=== PATIENT | female | born 1955 | race Caucasian/White ===

== ENCOUNTER → 2016-03-27 | Outpatient (CLI) | payer OTHER ==
--- NOTE | 2016-03-27 09:41 | MM ---
Reason for exam: follow-up at short interval from prior study. Last mammogram was performed 7 months ago. History: Patient is postmenopausal and history of other cancer. Benign core biopsy of the left breast, May 28, 1997. Benign stereotactic core biopsy of the left breast, May 28, 1997. Taking estrogen for 3 years 7 months. Physical Findings: Nurse did not find any significant physical abnormalities on exam. MG 3D Diag Mammo W/Cad CATALINA Bilateral CC and MLO view(s) were taken. Prior study comparison: August 17, 2015, bilateral MG 3d diag mammo w/cad CATALINA. February 14, 2015, bilateral MG 3d work up w/cad CATALINA. There are scattered fibroglandular densities. Finding: There are typically benign calcifications in both breasts. No significant changes in finding since August 17, 2015 and February 14, 2015. These results were verbally communicated with the patient and result sheet given to the patient on 03/27/16. ASSESSMENT: Benign, BI-RAD 2 RECOMMENDATION: Routine screening mammogram of both breasts in 1 year.
== END | disposition home or self-care (01) ==
LOC: RADMAMWWP 08:17
PROVIDERS: ATTEND Obstetrics & Gynecology
DX: R92.8 Other abnormal and inconclusive findings on diagnostic imaging of breast (principal)
CPT/HCPCS: G0204; G0279

== ENCOUNTER 2016-05-09 20:14 | Inpatient (IN) | payer OTHER ==
[2016-05-09] MEDS ORDERED: SODIUM CHLORIDE 0.9% 2,000 ML IV STA (21:48)
[2016-05-09] MEDS ORDERED: SODIUM CHLORIDE 0.9% 1,000 ML IV STA (21:48)
[2016-05-09] MEDS ORDERED: ACETAMINOPHEN IV (For NPO) 1,000 MG in SALINE 1 100ML.BAG IVPB STA (21:49)
[2016-05-09] MEDS ORDERED: ONDANSETRON 4 MG/2 ML VIAL IVP STA (22:05)
[2016-05-09 22:08] LABS: Basophils % (A) 0 %; CH 32.5; CHCM 35.4; Eosinophils % (A) 0 %; HDW 2.58; HGB 14.1 gm/dL (11.4-16.0); Luc # (Auto) 0.26; Luc % (Auto) 3; Lymphocytes # (A) 0.6 k/uL (1.0-4.8); Lymphocytes % (A) 6 %; MCH 32.5 pg (25.0-35.0); MCHC 35.3 g/dL (31.0-37.0); MCV 92.2 fL (80.0-100.0); Mean Platelet Volume 7.9; Monocytes # (A) 0.8 k/uL (0-1.0); Monocytes % (A) 8 %; Neutrophils # (A) 8.3 k/uL (1.3-7.7); Neutrophils % (A) 83 %; RBC 4.34 m/uL (3.80-5.40); RDW 11.6 % (11.5-15.5); WBC (Perox) 10.28
[2016-05-09 22:18] LABS: ALT 33 U/L (9-52); AST 29 U/L (14-36); Alkaline Phosphatase 74 U/L (38-126); Amylase 40 U/L (30-110); Anion Gap 13 mmol/L; Blood Urea Nitrogen 14 mg/dL (7-17); Calcium 9.4 mg/dL (8.4-10.2); Carbon Dioxide 25 mmol/L (22-30); Chloride 100 mmol/L (98-107); Glucose 119 mg/dL (74-99); Non-African American GFR(MDRD) >60 (>60 ml/min/1.73 sqM); Potassium 3.6 mmol/L (3.5-5.1); Sodium 138 mmol/L (137-145); Total Bilirubin 1.4 mg/dL (0.2-1.3); Total Protein 7.4 g/dL (6.3-8.2)
--- NOTE | 2016-05-09 22:20 | XR ---
EXAMINATION TYPE: XR chest 2V DATE OF EXAM: 05/09/2016 10:12 PM COMPARISON: NONE HISTORY: Fever TECHNIQUE: Frontal and lateral views of the chest are obtained. FINDINGS: Heart and mediastinum are normal. Lungs are clear. Diaphragm is normal. Bony thorax is int act. There are chest leads. IMPRESSION: Normal chest
--- NOTE | 2016-05-09 22:20 | ED ---
Fever HPI - General Chief Complaint: Fever Stated Complaint: Fever/103.2 Time Seen by Provider: 05/09/16 21:42 Source: patient, RN notes reviewed Mode of arrival: ambulatory Limitations: no limitations - History of Present Illness Initial Comments: This is a 61-year-old female history diverticulosis who states she had the onset over last couple days of not feeling well. She also has had left lower quadrant abdominal pain and some low back pain. This was on the left. She also her urine is a little stronger than normal. No sore throat rhinorrhea cough. No other symptoms she's had decreased oral intake she feels nauseated every time she tries to eat or drink. MD Complaint: fever, other - Related Data Home Medications Medication Instructions Recorded Confirmed Clindamycin Phosphate [Cleocin T] 1 applicate TOPICAL BID PRN 05/09/16 05/09/16 Estradiol [Vagifem] 10 mcg VAGINAL MOTH 05/09/16 05/09/16 [employer] Thyroid 60 mg PO BID 05/09/16 05/09/16 Allergies Allergy/AdvReac Type Severity Reaction Status Date / Time No Known Allergies Allergy Verified 05/09/16 22:08 Review of Systems ROS Statement: Those systems with pertinent positive or pertinent negative responses have been documented in the HPI. ROS Other: All systems not noted in ROS Statement are negative. Past Medical History Additional Past Medical History / Comment(s): diverticulosis History of Any Multi-Drug Resistant Organisms: None Reported Past Surgical History: Hysterectomy Past Psychological History: No Psychological Hx Reported Smoking Status: Never smoker Past Alcohol Use History: Occasional Past Drug Use History: None Reported General Exam - General Exam Comments Initial Comments: Is a well-developed well-nourished awake alert oriented 3 female Limitations: no limitations General appearance: alert, in no apparent distress Head exam: Present: atraumatic, normocephalic, normal inspection Eye exam: Present: normal appearance, PERRL, EOMI. Absent: scleral icterus, conjunctival injection, periorbital swelling ENT exam: Present: mucous membranes dry Neck exam: Present: normal inspection. Absent: tenderness, meningismus, lymphadenopathy Respiratory exam: Present: normal lung sounds bilaterally. Absent: respiratory distress, wheezes, rales, rhonchi, stridor Cardiovascular Exam: Present: normal rhythm, tachycardia GI/Abdominal exam: Present: soft (Left lower quadrant tenderness palpation no definite guarding or rebound), tenderness Rectal exam: Present: deferred Extremities exam: Present: normal inspection, full ROM, normal capillary refill. Absent: tenderness, pedal edema, joint swelling, calf tenderness Back exam: Present: normal inspection Neurological exam: Present: alert, oriented X3, CN II-XII intact Psychiatric exam: Present: normal affect, normal mood Skin exam: Present: warm, dry, intact, normal color. Absent: rash Course Vital Signs 05/09/16 05/09/16 05/09/16 21:15 21:59 22:27 Temperature 102.3 F H 101.7 F H Pulse Rate 135 H 143 H 116 H Respiratory 20 18 16 Rate Blood Pressure 120/71 O2 Sat by Pulse 98 98 95 Oximetry 05/09/16 23:17 Temperature 99.1 F Pulse Rate 105 H Respiratory 16 Rate Blood Pressure 103/59 O2 Sat by Pulse 95 Oximetry - Reevaluation(s) Reevaluation #1: 05/10/16 00:17 Did reevaluate the patient she was feeling somewhat improved. Medical Decision Making - Medical Decision Making Did discuss findings with the patient and her as well as with Dr. Caballero. Patient will be admitted place an IV antibiotics IV fluids Flomax. I did discuss the case with Dr. Claros. Patient will be nothing by mouth after midnight. - Lab Data Result diagrams: 05/09/16 21:45 05/09/16 21:45 Lab Results 05/09/16 05/09/16 05/09/16 Range/Units 21:45 21:45 21:45 WBC 10.0 (3.8-10.6) k/uL RBC 4.34 (3.80-5.40) m/uL Hgb 14.1 (11.4-16.0) gm/dL Hct 40.0 (34.0-46.0) % MCV 92.2 (80.0-100.0) fL MCH 32.5 (25.0-35.0) pg MCHC 35.3 (31.0-37.0) g/dL RDW 11.6 (11.5-15.5) % Plt Count 222 (150-450) k/uL Neutrophils % 83 % Lymphocytes % 6 % Monocytes % 8 % Eosinophils % 0 % Basophils % 0 % Neutrophils # 8.3 H (1.3-7.7) k/uL Lymphocytes # 0.6 L (1.0-4.8) k/uL Monocytes # 0.8 (0-1.0) k/uL Eosinophils # 0.0 (0-0.7) k/uL Basophils # 0.0 (0-0.2) k/uL Sodium 138 (137-145) mmol/L Potassium 3.6 (3.5-5.1) mmol/L Chloride 100 (98-107) mmol/L Carbon Dioxide 25 (22-30) mmol/L Anion Gap 13 mmol/L BUN 14 (7-17) mg/dL Creatinine 0.72 (0.52-1.04) mg/dL Est GFR (MDRD) Af Amer >60 (>60 ml/min/1.73 sqM) Est GFR (MDRD) Non-Af >60 (>60 ml/min/1.73 sqM) Glucose 119 H (74-99) mg/dL Plasma Lactic Acid Venu (0.7-2.0) mmol/L Calcium 9.4 (8.4-10.2) mg/dL Total Bilirubin 1.4 H (0.2-1.3) mg/dL AST 29 (14-36) U/L ALT 33 (9-52) U/L Alkaline Phosphatase 74 (38-126) U/L Total Creatine Kinase 29 L (30-135) U/L CK-MB (CK-2) <0.2 (0.0-2.4) ng/mL CK-MB (CK-2) Rel Index Troponin I <0.012 (0.000-0.034) ng/mL Total Protein 7.4 (6.3-8.2) g/dL Albumin 4.1 (3.5-5.0) g/dL Amylase 40 (30-110) U/L Lipase 51 (23-300) U/L Urine Color Urine Appearance (Clear) Urine pH (5.0-8.0) Ur Specific [place] (1.001-1.035) Urine Protein (Negative) Urine Glucose (UA) (Negative) Urine Blood (Negative) Urine Nitrate (Negative) Urine Bilirubin (Negative) Urine Urobilinogen (<2.0) mg/dL Ur Leukocyte Esterase (Negative) Urine RBC (0-5) /hpf Urine WBC (0-5) /hpf Urine WBC Clumps (None) /hpf Urine Bacteria (None) /hpf 05/09/16 05/09/16 Range/Units 21:45 23:10 WBC (3.8-10.6) k/uL RBC (3.80-5.40) m/uL Hgb (11.4-16.0) gm/dL Hct (34.0-46.0) % MCV (80.0-100.0) fL MCH (25.0-35.0) pg MCHC (31.0-37.0) g/dL RDW (11.5-15.5) % Plt Count (150-450) k/uL Neutrophils % % Lymphocytes % % Monocytes % % Eosinophils % % Basophils % % Neutrophils # (1.3-7.7) k/uL Lymphocytes # (1.0-4.8) k/uL Monocytes # (0-1.0) k/uL Eosinophils # (0-0.7) k/uL Basophils # (0-0.2) k/uL Sodium (137-145) mmol/L Potassium (3.5-5.1) mmol/L Chloride (98-107) mmol/L Carbon Dioxide (22-30) mmol/L Anion Gap mmol/L BUN (7-17) mg/dL Creatinine (0.52-1.04) mg/dL Est GFR (MDRD) Af Amer (>60 ml/min/1.73 sqM) Est GFR (MDRD) Non-Af (>60 ml/min/1.73 sqM) Glucose (74-99) mg/dL Plasma Lactic Acid Venu 0.9 (0.7-2.0) mmol/L Calcium (8.4-10.2) mg/dL Total Bilirubin (0.2-1.3) mg/dL AST (14-36) U/L ALT (9-52) U/L Alkaline Phosphatase (38-126) U/L Total Creatine Kinase (30-135) U/L CK-MB (CK-2) (0.0-2.4) ng/mL CK-MB (CK-2) Rel Index Troponin I (0.000-0.034) ng/mL Total Protein (6.3-8.2) g/dL Albumin (3.5-5.0) g/dL Amylase (30-110) U/L Lipase (23-300) U/L Urine Color Yellow Urine Appearance Cloudy H (Clear) Urine pH 6.0 (5.0-8.0) Ur Specific [place] 1.040 H (1.001-1.035) Urine Protein 1+ H (Negative) Urine Glucose (UA) Negative (Negative) Urine Blood Moderate H (Negative) Urine Nitrate Negative (Negative) Urine Bilirubin Negative (Negative) Urine Urobilinogen <2.0 (<2.0) mg/dL Ur Leukocyte Esterase Large H (Negative) Urine RBC 65 H (0-5) /hpf Urine WBC >182 H (0-5) /hpf Urine WBC Clumps Moderate H (None) /hpf Urine Bacteria Rare H (None) /hpf - EKG Data -: EKG Interpreted by Me EKG shows normal: sinus rhythm Rate: tachycardia (Tachycardia rate was 147 QRS duration 70 daily since QTC of 344/[address]-T wave configuration.) - Radiology Data Radiology results: report reviewed (I did review the imaging and reports x-rays are unremarkable CAT scan that she'll evidence of a left UPJ calcification 8 mm diameter. There is perinephric stranding. Some hydronephrosis noted.), image reviewed Disposition Clinical Impression: Ureterolithiasis, Pyelonephritis, Febrile illness, acute, Sinus tachycardia, Dehydration Disposition: ADMITTED IP TO THIS [facility] Condition: Stable
--- NOTE | 2016-05-09 22:21 | XR ---
EXAMINATION TYPE: XR KUB DATE OF EXAM: 05/09/2016 10:12 PM COMPARISON: NONE HISTORY: Fever and abdominal pain TECHNIQUE: 2 views FINDINGS: bowel gas pattern is normal. There is no sign of intestinal obstruction or pneumoperitoneum. Fecal p attern is normal. Lung bases are clear. There are clips from cholecystectomy. There is no sign of a m ass. IMPRESSION: Nonacute abdomen.
[2016-05-09 22:28] LABS: Creatine Kinase 29 U/L (30-135)
[2016-05-09] MEDS ORDERED: RX INFO: IV CONTRAST WAS GIVEN 1 EACH MISC MISCELLANE PRN (22:28)
[2016-05-09] MEDS ORDERED: KETOROLAC 30 MG/ML 1 ML VIAL IVP STA (22:28)
[2016-05-09 22:42] LABS: Creatine Kinase MB <0.2 ng/mL (0.0-2.4); Troponin I <0.012 ng/mL (0.000-0.034)
--- NOTE | 2016-05-09 23:02 | CT ---
EXAMINATION TYPE: CT abdomen pelvis w con DATE OF EXAM: 05/09/2016 10:56 PM COMPARISON: NONE HISTORY: Left lower quadrant pain and fever. History of diverticulitis. CT DLP: 428.30 mGycm Automated exposure control for dose reduction was used. TECHNIQUE: Helical acquisition of images was performed from the lung bases through the pelvis. CONTRAST: Performed without Oral Contrast and with IV Contrast, patient injected with 100 mL of Omnipaque 300. FINDINGS: Lung bases are clear. There is no pleural effusion. There is minimal subsegmental atelectasis at the lateral left lung base. Heart size is normal. Liver has normal size. There is a 2 cm cyst in the left lobe of the liver. Spleen appears normal. The re is no pancreatic mass. There is cholecystectomy. Bile ducts are not dilated. There is no adrenal m ass. Kidneys have normal size. There is left-sided hydronephrosis. There is an 8 mm calculus in the p roximal left ureter. The right kidney shows no hydronephrosis. There is no retroperitoneal adenopathy . There is no ascites. Bladder distends smoothly. I see no intestinal wall thickening. There are no d ilated loops. Appendix appears normal. I see no bony destructive process. There is disc space narrowing at L4-5 and L5-S1. IMPRESSION: THERE IS A STONE AT THE LEFT URETEROPELVIC JUNCTION WITH OBSTRUCTION OF THE LEFT UPPER COLLECTING SYS TEM. MILD LEFT HYDRONEPHROSIS. MILD LEFT-SIDED PERINEPHRIC EDEMA. SMALL CYST IN THE LEFT LOBE OF THE LIVER. NORMAL APPENDIX. THERE ARE A FEW SIGMOID DIVERTICULA NO WITH NO EVIDENCE OF DIVERTICULITIS.
[2016-05-09 23:32] LABS: Appearance,Urine Cloudy (Clear); Bacteria,Urine Rare /hpf; Bilirubin,Urine Negative (Negative); Glucose,Urine (UA) Negative (Negative); Ketones,Urine 2+ (Negative); Leukocyte Esterase,Urine Large (Negative); Nitrite,Urine Negative (Negative); Particle Count 46057; Protein,Urine 1+ (Negative); RBC,Urine 65 /hpf (0-5); UA Billing (MACRO vs. MICRO) MICRO; Urobilinogen,Urine <2.0 mg/dL (<2.0); WBC,Urine >182 /hpf (0-5)
[2016-05-09] MEDS ORDERED: PIPERACILLIN-TAZOBACTAM 3.375 GM in DEXTROSE/WATER 1 50ML.BAG IVPB STA (23:53)
[2016-05-10] MEDS ORDERED: TAMSULOSIN 0.4 MG CAP.ER.24H PO STA (00:14)
[2016-05-10] MEDS ORDERED: NALOXONE 0.4 MG/ML 1 ML VIAL IV PRN (00:20)
[2016-05-10] MEDS: ACETAMINOPHEN IV (For NPO) 1,000 MG in SALINE 1 100ML.BAG IVPB SCH ×3 (03:56→16:58)
[2016-05-10] MEDS: SODIUM CHLORIDE 0.9% 1,000 ML IV SCH ×3 (04:00→16:58)
--- NOTE | 2016-05-10 06:51 | P.GSCN ---
History of Present Illness Consult date: 05/10/16 History of present illness: The patient is a pleasant 61-year-old female who on Saturday began having left lower quadrant and hip pain. She has a history of diverticulitis and thought this was a problem but it was different. The pain persisted and worsened. He became quite colicky. She developed a fever and chills. She ended up in the emergency room last night and was identified to have an 8 mm proximal ureteral stone with infected urine. She had a temperature 102 and was tachycardic. She is admitted to the hospital as a urinary tract infection with sepsis, pyonephrosis, left ureteral stone. We were consult. The patient has no history of stones. Her mother and said stones. She does have diverticulitis but this is different. Her temperatures been controlled overnight. She has been placed on antibiotics. She had a computed tomography scan identifying the millimeter obstructing proximal ureteral stone her urine indeed is infected. Review of Systems - Constitutional Reports as per HPI - Gastrointestinal Reports as per HPI - Genitourinary Genitourinary: Reports as per HPI Past Medical History Additional Past Medical History / Comment(s): diverticulosis History of Any Multi-Drug Resistant Organisms: None Reported Past Surgical History: Cholecystectomy, Hysterectomy, Orthopedic Surgery Additional Past Surgical History / Comment(s): ankle Past Anesthesia/Blood Transfusion Reactions: Postoperative Nausea & Vomiting ( PONV) Past Psychological History: No Psychological Hx Reported Smoking Status: Former smoker Past Alcohol Use History: Occasional Past Drug Use History: None Reported Medications and Allergies Home Medications Medication Instructions Recorded Confirmed Type Clindamycin Phosphate [Cleocin T] 1 applicate TOPICAL BID PRN 05/09/16 05/09/16 History Estradiol [Vagifem] 10 mcg VAGINAL MOTH 05/09/16 05/09/16 History [employer] Thyroid 60 mg PO BID 05/09/16 05/09/16 History Allergies Allergy/AdvReac Type Severity Reaction Status Date / Time No Known Allergies Allergy Verified 05/09/16 22:08 Surgical - Exam Vital Signs Temp Pulse Resp BP Pulse Ox 102.3 F H 135 H 20 120/71 98 05/09/16 21:15 05/09/16 21:15 05/09/16 21:15 05/09/16 21:15 05/09/16 21:15 - General well developed, well nourished, moderate pain - Eyes PERRL - ENT no hearing loss - Neck trachea midline - Respiratory normal expansion, normal respiratory effort - Cardiovascular Rhythm: regular - Abdomen Abdomen: soft, tender - Integumentary no rash - Neurologic normal coordination, normal sensation - Musculoskeletal normal posture - Psychiatric oriented to time, oriented to person, oriented to place, speech is normal, memory intact Results - Labs 05/09/16 21:45 05/09/16 21:45 Assessment and Plan Plan: Impression: Left ureteral stone with obstruction, urinary tract infection with sepsis, pyonephrosis. Recommendations: This patient needs an urgent placement of a double-J catheter to relieve the obstruction and sepsis. This will be done today. Stone treatment formally will be done at a later date.
[2016-05-10] MEDS: PIPERACILLIN-TAZOBACTAM 3.375 GM in DEXTROSE/WATER 1 50ML.BAG IVPB SCH ×2 (07:46→17:27)
[2016-05-10] MEDS ORDERED: IV FLUID CONTINUATION 1,000 ML IV ONE (11:35)
[2016-05-10] MEDS ORDERED: DEXAMETHASONE SOD PHOSPHATE 10 MG/ML 1 ML VIAL IV ONE (11:56)
[2016-05-10] MEDS ORDERED: ONDANSETRON 4 MG/2 ML VIAL IVP ONE (11:57)
[2016-05-10] MEDS ORDERED: MIDAZOLAM 2 MG/2 ML VIAL ONE (12:21)
[2016-05-10] MEDS ORDERED: fentaNYL (PF) 50 MCG/ML 2 ML AMP ONE (12:21)
[2016-05-10] MEDS ORDERED: SUCCINYLCHOLINE CHLORIDE 100 MG/5 ML SYR IV ONE (12:21)
[2016-05-10] MEDS ORDERED: PROPOFOL 10 MG/ML 20 ML VIAL IV ONE (12:21)
[2016-05-10] MEDS ORDERED: LIDOCAINE 1% INJ 10MG/ML (20 ML MDV) ONE (12:21)
[2016-05-10] MEDS ORDERED: LACTATED RINGERS 1,000 ML IV ONE (12:39)
[2016-05-10] MEDS ORDERED: CLINDAMYCIN PHOSPHATE TOPICAL PRN (12:47)
--- NOTE | 2016-05-10 12:52 | P.OP ---
Date of Procedure: 05/10/16 Preoperative Diagnosis: Left ureteral calculus with obstruction, urinary tract infection with sepsis, pyonephrosis Postoperative Diagnosis: Same Procedure(s) Performed: Cystoscopy with placement of 6 x 24 double-J catheter left Anesthesia: YULISA Surgeon: Vickey Claros Estimated Blood Loss (ml): 0 Pathology: none sent Condition: stable Disposition: PACU Indications for Procedure: The patient is a 61-year-old female came in the hospital last night with an acute left ureteral stone and infected urine and sepsis. We're asked see the patient. I saw the patient this morning and she indeed history of an obstructing stone with urinary tract infection with sepsis. She needs an urgent placement of a double-J catheter to relieve the obstruction and allow the antibiotics to treat the infection. She comes for this procedure Description of Procedure: Patient brought to the operating suite and given a general endotracheal anesthesia. She's placed lithotomy position with a sterile prep and drape. Cystoscopy Foroblique lens and 22-Yi sheath identifies a normal urethra. She has a posterior place floor the bladder consistent with a cystocele. She has acute cystitis noted. The left ureteral orifice is identified and intubated with an 035 wire that passes by the elongated proximal ureteral stone. Over the wires is passed a 6 x 24 double-J catheter. It is tight going by the stone and the double-J coils in the kidney and in the bladder. The bladder is drained the patient's awake and returned recovery in good condition. She'll be returned recovery room upon recovery. At a later date the patient will either undergo shockwave lithotripsy or ureteroscopy to treat the stone.
[2016-05-10] MEDS ORDERED: NON-FORMULARY DRUG (Estradiol [Vagifem] 10 MCG) VAGINAL SCH (13:00)
[2016-05-10 13:18] VITALS: RESP 16
--- NOTE | 2016-05-10 13:32 | FL ---
Fluoroscopy INDICATION: Pain FINDINGS: Fluoroscopy time: 8 seconds. Images obtained: 1. IMPRESSIONS: 1. Documentation of fluoroscopy.
--- NOTE | 2016-05-10 14:14 | P.HPIM ---
History of Present Illness H&P Date: 05/10/16 Chief Complaint: Abdominal pain, obstructive uropathy, large left sided kidney stone, UTI a 61-year-old female one of my office patient with past medical history of diverticulitis along with mild osteoarthritis, hypothyroidism and osteopenia who has been doing well otherwise no major complaint until Saturday this week when she developed to have worsening left-sided pain thinking she might be going through mild episode of diverticulitis. Symptoms become much worse over the last 48 hours developed to have increased pain and discomfort fever chills worsening urination her temperature was 102 with the severity of her pain ended up coming to the emergency department at [facility] with her CAT scan and abdominal film found to have 8 mm proximal ureteral stone with infected urine. Patient was started on IV antibiotics, consult with urology and possible need for cystoscopy with stone extraction or stent. Review of Systems Constitutional: Reports fatigue, Reports lethargy, Reports poor appetite, Reports sweats, Reports weakness, Denies as per HPI, Denies anorexia, Denies chills, Denies chronic headaches, Denies chronic pain, Denies daytime sleepiness , Denies fever, Denies malaise, Denies night sweats, Denies weight gain, Denies weight loss Eyes: denies as per HPI Ears: deny: decreased hearing Ears, nose, mouth and throat: Reports ant. neck pain, Reports nasal congestion, Reports sinus pain, Reports sinus pressure, Denies as per HPI, Denies bleeding gums, Denies dental pain, Denies dysphagia, Denies epistaxis, Denies headache, Denies hoarseness, Denies mouth pain, Denies nasal discharge, Denies neck fullness/pressure, Denies neck lump, Denies nose pain, Denies odynophagia, Denies post-nasal drip, Denies swelling in mouth, Denies swelling in throat, Denies sore throat, Denies vertigo, Denies voice changes Breasts: bilateral: as per HPI Cardiovascular: Reports chest pain, Reports high blood pressure, Reports orthopnea, Reports shortness of breath, Denies as per HPI, Denies claudication, Denies decreased exercise tolerance, Denies dyspnea on exertion, Denies edema, Denies irregular heart beat, Denies leg edema, Denies lightheadedness, Denies palpitations, Denies paroxysmal nocturnal dyspnea, Denies phlebitis, Denies rapid heart beat, Denies syncope Respiratory: Reports congestion, Reports dyspnea, Reports respiratory infections , Denies as per HPI, Denies cough, Denies cough with sputum, Denies excessive sputum, Denies hemoptysis, Denies home oxygen, Denies pain, Denies pain on inspiration, Denies pleurisy, Denies sleep apnea, Denies snoring, Denies wheezing Gastrointestinal: Reports abdominal pain, Reports bloating, Reports dyspepsia, Reports indigestion, Reports lactose intolerance, Reports nausea, Denies as per HPI, Denies belching, Denies BRBPR, Denies change in bowel habits, Denies coffee ground emesis, Denies constipation, Denies diarrhea, Denies early satiety , Denies excessive gas, Denies heartburn, Denies hematemesis, Denies hematochezia, Denies jaundice, Denies loss of appetite, Denies melena, Denies vomiting Genitourinary: Reports nocturia, Denies as per HPI, Denies abnormal vaginal bleeding, Denies decreased libido, Denies difficulty conceiving, Denies difficulty voiding, Denies dysmenorrhea, Denies dyspareunia, Denies dysuria, Denies flank pain, Denies genital sores, Denies hematuria, Denies hot flashes, Denies incomplete emptying, Denies kidney stones, Denies menorrhagia, Denies mixed incontinence, Denies pelvic pain, Denies post void dribbling, Denies , Denies prolapse symptoms, Denies stress incontinence, Denies urge incontinence, Denies urgency, Denies urinary frequency, Denies vaginal discharge , Denies vaginal dryness, Denies vaginal itching, Denies vaginal odor Musculoskeletal: Reports arm numbness/tingling, Reports limitation of motion, Reports myalgias, Reports neck pain, Denies as per HPI, Denies atrophy, Denies fractures, Denies frequent falls, Denies gait dysfunction, Denies hot joints, Denies leg numbness/tingling, Denies loss of height, Denies low back pain, Denies morning stiffness, Denies muscle cramps, Denies muscle weakness, Denies neck stiffness, Denies prior amputations, Denies redness of joints, Denies shooting arm pain, Denies shooting leg pain Musculoskeletal: bilateral: ankle pain Integumentary: Reports pruritus, Reports rash, Reports sores, Denies as per HPI , Denies acne, Denies boils, Denies brittle nails, Denies change in hair/nails, Denies color changes, Denies darkening of skin, Denies depigmentation, Denies dryness, Denies foot/leg ulcers, Denies growths, Denies hirsutism, Denies lesions, Denies onychomycosis, Denies striae, Denies unusual bruising, Denies wounds Neurological: Reports tingling, Reports weakness, Denies as per HPI, Denies aphasia, Denies ataxia, Denies balance difficulties, Denies burning pain, Denies change in mentation, Denies change in smell/taste, Denies change in speech, Denies confusion, Denies convulsions, Denies double vision, Denies gait dysfunction, Denies head injury, Denies headaches, Denies hearing difficulties, Denies lack of coordination, Denies loss of vision, Denies memory loss, Denies migraines, Denies motor disturbance, Denies numbness, Denies paralysis, Denies paresthesias, Denies seizures, Denies sensory deficit, Denies spasticity, Denies syncope, Denies tic, Denies transient paralysis, Denies tremors, Denies vertigo, Denies visual changes Psychiatric: Reports anhedonia, Reports anxiety, Denies as per HPI, Denies anxiety attacks, Denies change in appetite, Denies change in libido, Denies change in sleep habits, Denies confusion, Denies depression, Denies difficulty concentrating, Denies disorientation, Denies hallucinations, Denies hopelessness , Denies hypersomnia, Denies insomnia, Denies irritability, Denies memory loss, Denies mood swings, Denies paranoia, Denies sadness/tearfulness, Denies sleep disturbances, Denies suicidal ideation Endocrine: Reports cold intolerance, Reports fatigue, Reports heat intolerance, Denies as per HPI, Denies deepening of the voice, Denies excessive sweating, Denies excessive thirst, Denies flushing, Denies high blood sugars, Denies increase in ring/shoe/hat size, Denies low blood sugars, Denies nocturia, Denies palpitations, Denies polydipsia, Denies polyphagia, Denies polyuria, Denies proptosis, Denies recent glucocorticoid use, Denies thyroid mass, Denies weight change Hematologic/Lymphatic: Denies as per HPI, Denies easy bleeding, Denies easy bruising, Denies lymphadenopathy, Denies lymphedema, Denies thrombophilia Allergic/Immunologic: Denies as per HPI, Denies allergic rhinitis, Denies anaphylaxis, Denies angioedema, Denies gluten intolerance, Denies persistent infections, Denies seasonal allergies, Denies urticaria, Denies wheezing Past Medical History Additional Past Medical History / Comment(s): diverticulosis History of Any Multi-Drug Resistant Organisms: None Reported Past Surgical History: Cholecystectomy, Hysterectomy, Orthopedic Surgery Additional Past Surgical History / Comment(s): ankle Past Anesthesia/Blood Transfusion Reactions: Postoperative Nausea & Vomiting ( PONV) Past Psychological History: No Psychological Hx Reported Smoking Status: Former smoker Past Alcohol Use History: Occasional Past Drug Use History: None Reported Medications and Allergies Home Medications Medication Instructions Recorded Confirmed Type Clindamycin Phosphate [Cleocin T] 1 applicate TOPICAL BID PRN 05/09/16 05/09/16 History Estradiol [Vagifem] 10 mcg VAGINAL MOTH 05/09/16 05/09/16 History Rn Advanced Thyroid 60 mg PO BID 05/09/16 05/09/16 History Allergies Allergy/AdvReac Type Severity Reaction Status Date / Time No Known Allergies Allergy Verified 05/09/16 22:08 Physical Exam Vitals: Vital Signs Temp Pulse Pulse Pulse Resp BP BP 05/10/16 13:30 70 16 95/56 05/10/16 13:17 79 16 97/57 05/10/16 13:01 89 20 103/62 05/10/16 12:51 98.1 F 93 20 97/54 05/10/16 11:48 98.2 F 90 18 92/55 05/10/16 08:00 124 H 05/10/16 07:57 103.1 F H 124 H 95 H 109/78 05/10/16 07:00 103.1 F H 124 H 15 109/76 05/10/16 00:31 98 F 96 18 93/56 05/10/16 00:21 100 16 104/56 Pulse Ox 05/10/16 13:30 100 05/10/16 13:17 100 05/10/16 13:01 100 05/10/16 12:51 100 05/10/16 11:48 95 05/10/16 08:00 05/10/16 07:57 05/10/16 07:00 95 05/10/16 00:31 100 05/10/16 00:21 96 Intake and Output 05/09/16 05/10/16 05/10/16 22:59 06:59 14:59 Intake Total 625 450 Output Total 0 Balance 625 450 Intake: IV 450 Intake, IV Titration 625 Amount Sodium Chloride 0.9% 1, 625 000 ml @ 125 mls/hr IV . Q8H [facility] Rx#:[id number] Output: Estimated Blood Loss 0 Other: Voiding Method Toilet Toilet # Voids 1 2 - Constitutional General appearance: no average body habitus, cooperative, no disheveled, no mild distress, no morbidly obese, no acute distress, no obese, no severe distress, no thin - EENT Eyes: no abnormal pupil, no anicteric sclerae, no disc margins sharp, no edentulous, no EOMI, no PERRLA, no fundus normal, no photophobia, no dentition normal, no poor dentition, no ptosis, no scleral icterus, normal appearance ENT: no hard of hearing, no hearing grossly normal, no NA/AT, normal oropharynx , no other, no pharyngeal erythema, no thrush, no tonsillar exudates, no tonsillar swelling Ears: bilateral: normal - Neck Neck: no lymphadenopathy, normal ROM, no other, no rigidity, no stridor, no thyromegaly Carotids: bilateral: upstroke normal Thyroid: bilateral: normal size - Respiratory Respiratory: bilateral: CTA, diminished - Cardiovascular Rhythm: regular Heart sounds: normal: S1, S2 - Gastrointestinal Mild tenderness and discomfort in the left flank area and left mid abdominal region. General gastrointestinal: no absent bowel sounds, no decreased bowel sounds, distended, no hepatomegaly, no hyperactive bowel sounds, normal bowel sounds, no organomegaly, no rigid, no scaphoid, no soft, no splenomegaly, tenderness, no umbilical hernia, no ventral hernia - Integumentary Integumentary: no calor, no cellulitis, no cyanotic, no decreased turgor, no flushed, no jaundiced, normal, no normal turgor, pale, rash, no ulcer - Neurologic Neurologic: CNII-XII intact - Musculoskeletal Musculoskeletal: gait normal, generalized weakness, strength equal bilaterally, no right sided weakness, no left sided weakness - Psychiatric Psychiatric: A&O x's 3, appropriate affect, no intact judgment & insight Results CBC & Chem 7: 05/09/16 21:45 05/09/16 21:45 Thrombosis Risk Factor Assmnt - Choose All That Apply Each Factor Represents 1 point: Age 41-60 years, Minor surgery planned Other Risk Factors: No Thrombosis Risk Factor Assessment Total Risk Factor Score: 2 Thrombosis Risk Factor Assessment Level: Low Risk Assessment and Plan Plan: 1 severe abdominal pain: Combination of urinary tract infection, sepsis and large kidney stone in the left side with obstructive uropathy try to treat underlying disease and try to relieve the pressure of obstruction at this point. 2 obstructive uropathy: Patient might require a procedure to release the pressure on the left side. 3 large kidney stone in the proximal ureteral area: Patient will be seen urology and possible need for surgical intervention with cystoscopy and stent. 4 UTI sepsis: With the current symptoms especially with a temperature in 1 O2 with slightly elevated neutrophil and 10,000 of WBC patient been diagnosed with sepsis and UTI was start Zosyn for now and add possibly oral Levaquin. 5 hypothyroidism: Continue patient on natural thyroid product as before. 6 GERD/GI prophylaxis: Patient will be on Pepcid 20 mg daily. Next 7 DVT prophylaxis: Patient be on heparin subcutaneous. CODE STATUS: Full code. Expectation from this admission: Patient be in the hospital for more than 2 nights.
[2016-05-10 20:33] VITALS: TEMP 97.4
[2016-05-10] MEDS: THYROID, PORK 30 MG TAB PO SCH (20:46)
[2016-05-10] MEDS: HEPARIN SODIUM,PORCINE 5,000 UNIT/ML 1 ML VIAL SQ SCH (20:47)
[2016-05-10] MEDS ORDERED: ALPRAZolam 0.5 MG TAB PO PRN (21:08)
[2016-05-11] MEDS: ACETAMINOPHEN IV (For NPO) 1,000 MG in SALINE 1 100ML.BAG IVPB SCH (00:16)
[2016-05-11] MEDS: PIPERACILLIN-TAZOBACTAM 3.375 GM in DEXTROSE/WATER 1 50ML.BAG IVPB SCH ×2 (00:56→08:10)
[2016-05-11] MEDS: SODIUM CHLORIDE 0.9% 1,000 ML IV SCH ×2 (01:01→12:36)
[2016-05-11 07:06] VITALS: BP 113/69; PULSE 49
[2016-05-11] MEDS ORDERED: BISACODYL 10 MG SUPP RECTAL STA (07:44)
--- NOTE | 2016-05-11 07:48 | P.PN ---
Progress Note - Text The patient is afebrile and says that she feels much more comfortable than when she came in. She is tolerating regular diet. Her main concern is that she feels bloated because she has not had a bowel movement in several days. Her urine is blood-tinged. Unfortunately it's unclear whether a urine culture was obtained when the patient was admitted. Impression: Probable acute left pyelonephritis complicated by obstructive left ureteral calculus-improved Recommendation: The patient could be switched to an oral antibiotic like Levaquin and discharged. Dr. Claros will make a decision sometime next week as to whether ESWL or ureteroscopy with lithotripsy would be the best treatment option for her ureteral calculus. The patient should remain on antibiotics until the surgery has been performed.
[2016-05-11] MEDS: THYROID, PORK 30 MG TAB PO SCH (08:08)
[2016-05-11] MEDS: HEPARIN SODIUM,PORCINE 5,000 UNIT/ML 1 ML VIAL SQ SCH ×2 (08:08→08:13)
[2016-05-11] MEDS ORDERED: FAMOTIDINE 20 MG TAB PO SCH (09:00)
--- NOTE | 2016-05-11 12:56 | P.DS ---
Providers Date of admission: 05/10/16 00:20 Expected date of discharge: 05/11/16 Attending physician: Rocky Caballero [facility] Course: 61-year-old female one of my office patient with past medical history of diverticulitis along with mild osteoarthritis, hypothyroidism and osteopenia who has been doing well otherwise no major complaint until Saturday this week when she developed to have worsening left-sided pain thinking she might be going through mild episode of diverticulitis. Symptoms become much worse over the last 48 hours developed to have increased pain and discomfort fever chills worsening urination her temperature was 102 with the severity of her pain ended up coming to the emergency department at [facility] with her CAT scan and abdominal film found to have 8 mm proximal ureteral stone with infected urine. Patient was started on IV antibiotics, consult with urology and possible need for cystoscopy with stone extraction or stent. 05/11: Patient has been seen by Dr. Tsai with recommendations for oral antibiotics and discharged home today. Patient will be discharged home in stable condition. Discharge diagnoses: 1 severe abdominal pain: Combination of urinary tract infection, sepsis and large kidney stone in the left side with obstructive uropathy 2 obstructive uropathy 3 large kidney stone in the proximal ureteral area 4 UTI sepsis 5 hypothyroidism 6 GERD Discharge plan: Home Impression and plan of care have been directed as dictated by the signing physician. Rebecca Suh nurse practitioner acting as scribe for signing physician. Patient Condition at Discharge: Good Plan - Discharge Summary New Discharge Prescriptions: Acetaminophen-Codeine 300-30mg [Tylenol #3] 1 tab PO Q4H PRN #30 tablet PRN Reason: Pain Levofloxacin [Levaquin] 500 mg PO DAILY #10 tab Tamsulosin [Flomax] 0.4 mg PO DAILY #30 cap Discharge Medication List Clindamycin Phosphate [Cleocin T] 1 applicate TOPICAL BID PRN 05/09/16 [History] Estradiol [Vagifem] 10 mcg VAGINAL MOTH 05/09/16 [History] [employer] Thyroid 60 mg PO BID 05/09/16 [History] Acetaminophen-Codeine 300-30mg [Tylenol #3] 1 tab PO Q4H PRN #30 tablet [Rx] Levofloxacin [Levaquin] 500 mg PO DAILY #10 tab 05/11/16 [Rx] Tamsulosin [Flomax] 0.4 mg PO DAILY #30 cap 05/11/16 [Rx] Follow up Appointment(s)/Referral(s): Rocky Caballero MD [Primary Care Provider] - 05/15/16 9:30 am Ld Tsai MD [STAFF PHYSICIAN] - 1 Week (Office phones not working. Patient to call and schedule follow up appointment.) Patient Instructions/Handouts: Cystoscopy (DC) Activity/Diet/Wound Care/Special Instructions: Call office as directed to make follow up appointment. Discharge Disposition: HOME SELF-CARE
== END 2016-05-11 13:20 | disposition home or self-care (01) | DRG 872 ==
LOC: EC 20:14 → 3SUR 05-10 00:20
PROVIDERS: ADMIT Internal Medicine Geriatric Medicine; ATTEND Internal Medicine Geriatric Medicine
PROC: 0T778DZ Dilation of Left Ureter with Intraluminal Device, Via Natural or Artificial Opening Endoscopic (ICD-10-PCS; principal; 2016-05-10 11:30)
DX: A41.9 Sepsis, unspecified organism (principal); K57.92 Diverticulitis of intestine, part unspecified, without perforation or abscess without bleeding; N13.6 Pyonephrosis; E03.9 Hypothyroidism, unspecified; E86.0 Dehydration; K21.9 Gastro-esophageal reflux disease without esophagitis; M85.80 Other specified disorders of bone density and structure, unspecified site; M19.90 Unspecified osteoarthritis, unspecified site; Z79.899 Other long term (current) drug therapy; Z87.891 Personal history of nicotine dependence
CPT/HCPCS: 36415; 71020; 74000; 74177; 80053; 81001; 82150; 82550; 82553; 83605; 83690; 84484; 85025; 87040; 93005; 96361; 96365; 96375; 99285

== ENCOUNTER 2016-05-29 11:16 | Day surgery (SDC) | payer OTHER ==
[2016-05-24 14:42] VITALS: BMI 20.1
[~2016-05-29 11:16] MED LIST: DEXAMETHASONE SOD PHOSPHATE 10 MG/ML 1 ML VIAL IV ONE; GENTAMICIN 80 MG in SODIUM CHLORIDE 0.9% 100 ML IVPB ONE; MIDAZOLAM 2 MG/2 ML VIAL IV PRN; ONDANSETRON 4 MG/2 ML VIAL IVP ONE
[2016-05-29] MEDS: LACTATED RINGERS 1,000 ML IV SCH ×2 (11:36→16:15)
[2016-05-29] MEDS ORDERED: LIDOCAINE 1% 20 ML VIAL (10MG/ML) FOR IV START INTRADERMA ONE (11:37)
[2016-05-29] MEDS ORDERED: SUCCINYLCHOLINE CHLORIDE 100 MG/5 ML SYR IV ONE (13:14)
[2016-05-29] MEDS ORDERED: MIDAZOLAM 2 MG/2 ML VIAL ONE (13:14)
[2016-05-29] MEDS ORDERED: ROCURONIUM BROMIDE 10 MG/ML 10 ML VIAL IV ONE (13:14)
[2016-05-29] MEDS ORDERED: LIDOCAINE 1% INJ 10MG/ML (20 ML MDV) ONE (13:14)
[2016-05-29] MEDS ORDERED: fentaNYL (PF) 50 MCG/ML 2 ML AMP ONE (13:14)
[2016-05-29] MEDS ORDERED: PROPOFOL 10 MG/ML 20 ML VIAL IV ONE (13:14)
--- NOTE | 2016-05-29 13:51 | XR ---
Abdomen History: Preop for cystoscopy, status post ureteral stent, ureteral calculus Frontal view of the abdomen submitted on 2 images and correlated to prior CT scan and plain film abdo men 09 May 2016 Left-sided double-J stent is in place coiled within the renal pelvis and bladder, ureteral calculus i s present posteriorly between the L2 and L3 transverse processes level. Surgical clips present right upper quadrant. IMPRESSION: Status post left stent placement for left ureteral calculus
--- NOTE | 2016-05-29 14:11 | P.OP ---
Date of Procedure: 05/29/16 Preoperative Diagnosis: Left ureteral calculus, previous urinary infection, previous placement of left double-J catheter Postoperative Diagnosis: Same Procedure(s) Performed: Cystoscopy, removal double-J catheter left, left ureteroscopy with laser lithotripsy and stone basketing Anesthesia: YULISA Surgeon: Vickey Claros Pathology: other (Stone) Condition: stable Disposition: PACU Indications for Procedure: The patient is a 61-year-old female who was in the hospital a couple weeks ago with a septic ureteral stone requiring stent and antibiotics. Her sepsis has cleared she now comes for stone and stent removal Description of Procedure: The patient is brought to the operating suite and given a general endotracheal anesthesia. KUB preoperatively shows a little elongated stone in the proximal ureter alongside the stent. Cystoscopy Foroblique lens and 22-Tamazight sheath is performed to grasp the double-J catheter and pulled to the urethral meatus. Through the catheters passed an 035 wire up into the renal pelvis. Alongside the wires pass a 7-Tamazight mini ureteroscope up to the stone. The stone appears to be small enough that it should be basketed and pulled out of the ureter without having to break it up. It is long but not wide. With a 1.9 stone basket the stone was grasped and pulled all the way into the distal ureter near the intramural tunnel but gets stuck there. Thus alongside the wire is passed a 200 laser probe up to the stone and the stone was broken into tiny pieces while remaining in the stone basket. Eventually I'm able to pull the stone basket and the remaining stone out. I then reintroduced the ureteroscope into the ureter and pull the remaining fragments out of the ureter. I then reintroduced the scope and into the ureter and there is not enough edema to leave a double-J catheter. The ureter is irrigated thoroughly with water. I removed the ureteroscope and the wire. The bladder strain and the fragments are removed and sent to pathology. The patient's awakened and returned recovery room good condition. She'll be discharged home later upon recovery. Blood loss is minimal
--- NOTE | 2016-05-29 14:23 | FL ---
Fluoroscopy HISTORY: Left ureteral calculus 38 seconds fluoroscopy time supplied to the referring clinician. 1 intraoperative C-arm images docum ent the procedure. See dictated report from urology.
[2016-05-29 14:33] VITALS: TEMP 97.5
[2016-05-29] MEDS: HYDROmorphone 1 MG/ML 1 ML SYRINGE IVP PRN ×4 (14:40→15:00)
[2016-05-29] MEDS ORDERED: MEPERIDINE 50 MG/ML SYRINGE IVP STA (16:00)
[2016-05-29] MEDS ORDERED: ONDANSETRON 4 MG/2 ML VIAL IM STA (16:08)
[2016-05-29] MEDS ORDERED: HYDROcodone/APAP 5-325MG 1 EACH TAB PO STA (16:12)
[2016-05-29 16:36] VITALS: BP 146/84; PULSE 103; RESP 20
== END 2016-05-29 19:22 | disposition home or self-care (01) ==
LOC: OR 11:16
PROVIDERS: ATTEND Urology
DX: N20.1 Calculus of ureter (principal); Z46.6 Encounter for fitting and adjustment of urinary device; E03.9 Hypothyroidism, unspecified; Z87.891 Personal history of nicotine dependence; Z79.899 Other long term (current) drug therapy
CPT/HCPCS: 82365; 74000; 74430; 52352; C1769; J2250; J1100; J2175; J2405; J2001; J3010; J1580; J1170; J0330; J2704

== ENCOUNTER → 2017-03-21 | Outpatient (CLI) | payer OTHER ==
--- NOTE | 2017-03-21 14:27 | XR ---
EXAMINATION TYPE: XR chest 2V DATE OF EXAM: 03/21/2017 COMPARISON: 05/09/2016 HISTORY: Shortness of breath TECHNIQUE: Frontal and lateral views of the chest are obtained. FINDINGS: Scattered senescent parenchymal changes noted. Hyperinflation compatible with COPD. No evidence for infiltrate. No evidence for atelectasis. Heart size is stable. Mediastinal structures are stable and grossly unremarkable. No evidence for hilar prominence. Degenerative changes dorsal spine. IMPRESSION: 1. No evidence for acute pulmonary disease.
== END ==
LOC: RADXRMAIN 13:28
PROVIDERS: ATTEND Internal Medicine Geriatric Medicine
DX: R05 Cough (principal)
CPT/HCPCS: 71046

== ENCOUNTER → 2017-03-28 | Outpatient (CLI) | payer OTHER ==
--- NOTE | 2017-03-29 10:44 | MM ---
Reason for exam: screening (asymptomatic). Last mammogram was performed 1 year ago. History: Patient is postmenopausal and history of other cancer. Benign core biopsy of the left breast, May 28, 1997. Benign stereotactic core biopsy of the left breast, May 28, 1997. Taking estrogen for 3 years 7 months beginning at age 49. Physical Findings: A clinical breast exam by your physician is recommended on an annual basis and results should be correlated with mammographic findings. MG 3D Screening Mammo W/Cad Bilateral CC and MLO view(s) were taken. Prior study comparison: March 27, 2016, bilateral MG 3d diag mammo w/cad [facility]. August 17, 2015, bilateral MG 3d diag mammo w/cad [facility]. The breast tissue is heterogeneously dense. This may lower the sensitivity of mammography. Finding: There is a 6 mm circumscribed round mass in the upper outer quadrant, anterior position of the right breast best seen on slice 14/65 MLO view. There are typically benign round calcifications in both breasts. New finding since August 17, 2015. ASSESSMENT: Incomplete: need additional imaging evaluation, BI-RAD 0 RECOMMENDATION: Special view mammogram of the right breast. If lesion persists on supplemental views, image directed ultrasound is recommended. [facility] will attempt to contact patient to return for supplemental views and ultrasound if indicated.
== END | disposition home or self-care (01) ==
LOC: RADMAMWWP 13:53
PROVIDERS: ATTEND Obstetrics & Gynecology
DX: Z12.31 Encounter for screening mammogram for malignant neoplasm of breast (principal)
CPT/HCPCS: 77063; 77067

== ENCOUNTER 2017-03-29 10:48 | Day surgery (SDC) | payer OTHER ==
[2017-03-28 10:11] VITALS: BMI 19.8
[~2017-03-29 10:48] MED LIST changes: -DEXAMETHASONE SOD PHOSPHATE 10 MG/ML 1 ML VIAL IV ONE; -GENTAMICIN 80 MG in SODIUM CHLORIDE 0.9% 100 ML IVPB ONE; +LACTATED RINGERS 1,000 ML IV SCH; -MIDAZOLAM 2 MG/2 ML VIAL IV PRN; -ONDANSETRON 4 MG/2 ML VIAL IVP ONE
[2017-03-29 11:53] VITALS: RESP 16; TEMP 97
[2017-03-29] MEDS ORDERED: fentaNYL (PF) 50 MCG/ML 2 ML AMP ONE (13:00)
[2017-03-29] MEDS ORDERED: PROPOFOL 10 MG/ML 20 ML VIAL IV ONE (13:00)
[2017-03-29] MEDS ORDERED: MIDAZOLAM 2 MG/2 ML VIAL ONE (13:00)
--- NOTE | 2017-03-29 13:12 | P.PCN ---
Date of Procedure: 03/29/17 Procedure(s) Performed: BRIEF HISTORY: Patient is a 61-year-old, pleasant, white female, scheduled for an upper endoscopy as a part of evaluation of throat discomfort, chest pressure and dysphagia on and off for the last few weeks duration. She was treated with Prilosec did not help. She was recent started on Carafate 1 g 4 times daily with no help. She is hence scheduled for an upper endoscopy to evaluate further. PROCEDURE PERFORMED: Esophagogastroduodenoscopy with biopsy. PREOPERATIVE DIAGNOSIS: Dysphagia/throat irritation/chest pressure of 2 weeks duration. IV sedation per anesthesia. PROCEDURE: After informed consent was obtained, the patient was brought into the endoscopy unit. IV sedation was administered by Anesthesia under continuous monitoring. Initially the Olympus GIF-140 video endoscope was inserted into the mouth. Esophagus intubated without any difficulty. It was gradually advanced into the stomach and duodenum and carefully examined. The bulb and the second part of the duodenum appeared normal. The scope at this time was withdrawn to the stomach, adequately insufflated with air, and upon careful examination, mucosa of the antrum, had patchy areas of erythema and biopsies were done from this area. The body, cardia and the fundus appeared normal. The scope was then withdrawn into the esophagus. Small sliding Hiatal hernia noted. The GE junction was located at 39 cm from the incisors. The esophagus appeared normal. There were no erosions or ulcerations seen, biopsies were done from the distal esophagus. The proximal cervical esophagus was carefully examined and appeared normal and the patient tolerated the procedure well. IMPRESSION: 1. Mild antral gastritis. 2. Small hiatal hernia but no evidence of esophagitis or esophageal stricture RECOMMENDATIONS: The findings of this examination were discussed with the patient as well as a family. She was advised to follow with the biopsy results.
[2017-03-29 13:28] VITALS: BP 116/74; PULSE 76
== END 2017-03-29 13:57 | disposition home or self-care (01) ==
LOC: ORWHC2ENDO 10:48
PROVIDERS: ATTEND Internal Medicine Gastroenterology
DX: K21.9 Gastro-esophageal reflux disease without esophagitis (principal); K29.50 Unspecified chronic gastritis without bleeding; K44.9 Diaphragmatic hernia without obstruction or gangrene; E07.9 Disorder of thyroid, unspecified; Z79.899 Other long term (current) drug therapy; Z87.891 Personal history of nicotine dependence
CPT/HCPCS: 43239; 88305; 88342; J2250; J3010; J2704

== ENCOUNTER → 2017-04-02 | Outpatient (CLI) | payer OTHER ==
--- NOTE | 2017-04-02 12:02 | MM ---
Reason for exam: additional evaluation requested from abnormal screening. Last mammogram was performed less than 1 month ago. History: Patient is postmenopausal and history of other cancer. Benign core biopsy of the left breast, May 28, 1997. Benign stereotactic core biopsy of the left breast, May 28, 1997. Taking estrogen for 3 years 7 months beginning at age 49. Physical Findings: Nurse did not find any significant physical abnormalities on exam. MG 3D Work Up W/Cad RT Spot compression CC, spot compression MLO, and ML view(s) were taken of the right breast. Prior study comparison: March 28, 2017, bilateral MG 3d screening mammo w/cad. March 27, 2016, bilateral MG 3d diag mammo w/cad [facility]. No definite lesion persists. These results were verbally communicated with the patient and result sheet given to the patient on 04/02/17. ASSESSMENT: Negative, BI-RAD 1 RECOMMENDATION: Return to routine screening mammogram schedule for both breasts.
--- NOTE | 2017-04-02 12:03 | USB ---
Reason for exam: additional evaluation requested from abnormal screening. History: Patient is postmenopausal and history of other cancer. Benign core biopsy of the left breast, May 28, 1997. Benign stereotactic core biopsy of the left breast, May 28, 1997. Taking estrogen for 3 years 7 months beginning at age 49. US Breast Workup Limited RT Right breast ultrasound demonstrates no cystic or solid lesion seen. These results were verbally communicated with the patient and result sheet given to the patient on 04/02/17. ASSESSMENT: Incomplete: need additional imaging evaluation, BI-RAD 0 RECOMMENDATION: Special view mammogram of the right breast.
== END | disposition home or self-care (01) ==
LOC: RADMAMWWP 10:48
PROVIDERS: ATTEND Obstetrics & Gynecology
DX: R92.8 Other abnormal and inconclusive findings on diagnostic imaging of breast (principal)
CPT/HCPCS: 77065; 76642; G0279

== ENCOUNTER → 2018-04-24 | Outpatient (CLI) | payer OTHER ==
--- NOTE | 2018-04-25 10:53 | MM ---
Reason for exam: screening (asymptomatic). Last mammogram was performed 1 year and 1 month ago. History: Patient is postmenopausal and history of other cancer. Benign core biopsy of the left breast, May 28, 1997. Benign stereotactic core biopsy of the left breast, May 28, 1997. Taking estrogen for 3 years 7 months beginning at age 49. Physical Findings: A clinical breast exam by your physician is recommended on an annual basis and results should be correlated with mammographic findings. MG 3D Screening Mammo W/Cad Bilateral CC and MLO view(s) were taken. Prior study comparison: April 02, 2017, right breast MG 3d work up w/cad RT. March 28, 2017, bilateral MG 3d screening mammo w/cad. The breast tissue is heterogeneously dense. This may lower the sensitivity of mammography. No suspicious abnormality. No significant changes when compared with prior studies. ASSESSMENT: Negative, BI-RAD 1 RECOMMENDATION: Routine screening mammogram of both breasts in 1 year.
== END | disposition home or self-care (01) ==
LOC: RADMAMWWP 07:54
PROVIDERS: ATTEND Obstetrics & Gynecology
DX: Z12.31 Encounter for screening mammogram for malignant neoplasm of breast (principal)
CPT/HCPCS: 77063; 77067

== ENCOUNTER → 2018-06-19 | Outpatient (CLI) | payer OTHER | END | disposition home or self-care (01) | LOC: LABWHC1 07:57 | PROVIDERS: ATTEND Otolaryngology | DX: J30.89 Other allergic rhinitis (principal) | CPT/HCPCS: 36415; 86001 ==

== ENCOUNTER 2018-07-24 20:52 | Emergency (ER) | payer OTHER ==
--- NOTE | 2018-07-24 21:19 | ED ---
Arrhythmia/Palpitations HPI - General Chief Complaint: Arrhythmia/Palpitations Stated Complaint: Fast Heart Rate, Headache x 2months Time Seen by Provider: 07/24/18 21:07 Source: patient Mode of arrival: ambulatory Limitations: no limitations - History of Present Illness Initial Comments: 's patient is a 63-year-old woman who presents to be evaluated for rapid heartbeat. The patient states that she had been at a beer tasting this evening and then when she returned home from that she noticed that her heart was beating more rapidly than usual. The patient states she does not have a history of this happening previously. She is denying any associated symptoms. She denies dyspnea, diaphoresis, chest pain, nausea or vomiting, lightheadedness or sy ncope. She has noted no other systemic symptoms, including no fever or chills, no change in bowel movements or urination no leg pain or swelling. MD Complaint: rapid heart beat -: hour(s) Context: occurred during rest Associated Symptoms: denies other symptoms - Related Data Home Medications Medication Instructions Recorded Confirmed Thyroid,Pork [[employer] Thyroid 120] 90 mg PO QAM 05/24/16 07/24/18 Adk 1 tab PO DAILY 03/28/17 07/24/18 Dim Complex 1 tab PO DAILY 03/28/17 07/24/18 Iodine 1 tab PO DAILY 03/28/17 07/24/18 Montelukast [Singulair] 10 mg PO DAILY 07/24/18 07/24/18 Thyroid,Pork [Thyroid] 30 mg PO HS 07/24/18 07/24/18 Allergies Allergy/AdvReac Type Severity Reaction Status Date / Time No Known Allergies Allergy Verified 07/24/18 22:05 Review of Systems ROS Statement: Those systems with pertinent positive or pertinent negative responses have been documented in the HPI. ROS Other: All systems not noted in ROS Statement are negative. Constitutional: Denies: fever, chills, weakness Eyes: Denies: vision change Respiratory: Denies: cough, dyspnea Cardiovascular: Reports: palpitations. Denies: chest pain, orthopnea, edema, syncope Gastrointestinal: Denies: abdominal pain, nausea, vomiting Genitourinary: Denies: dysuria, hematuria Musculoskeletal: Denies: back pain Skin: Denies: rash Neurological: Reports: headache (Chronic). Denies: weakness, confusion Psychiatric: Reports: anxiety Past Medical History Past Medical History: GERD/Reflux, Thyroid Disorder Additional Past Medical History / Comment(s): migraines, kidney stone, varicose veins, small hiatal hernia, diverticulitis, high pressure in eyes- doctor nolan [email or web address] History of Any Multi-Drug Resistant Organisms: None Reported Past Surgical History: Cholecystectomy, Hysterectomy, Orthopedic Surgery Additional Past Surgical History / Comment(s): rt ankle surgery, stent left kidney Past Anesthesia/Blood Transfusion Reactions: Motion Sickness, Postoperative Nausea & Vomiting (PONV) Past Psychological History: No Psychological Hx Reported Smoking Status: Former smoker Past Alcohol Use History: Occasional Past Drug Use History: Marijuana - Past Family History Mother Family Medical History: No Reported History General Exam Limitations: no limitations General appearance: alert, in no apparent distress, anxious Head exam: Present: atraumatic, normocephalic Eye exam: Present: normal appearance ENT exam: Present: normal oropharynx Neck exam: Present: normal inspection Respiratory exam: Present: normal lung sounds bilaterally. Absent: respiratory distress, wheezes, rales, rhonchi, stridor Cardiovascular Exam: Present: regular rate (Proximally 124 by exam), tachycardia, normal heart sounds. Absent: systolic murmur, diastolic murmur, rubs, gallop GI/Abdominal exam: Present: soft. Absent: distended, tenderness, guarding, rebound, rigid, mass Extremities exam: Present: normal inspection, normal capillary refill. Absent: pedal edema, calf tenderness Back exam: Present: normal inspection. Absent: CVA tenderness (R), CVA tenderness (L) Neurological exam: Present: alert Skin exam: Present: warm, dry, intact, normal color. Absent: rash Course Vital Signs 07/24/18 07/24/18 21:02 23:19 Temperature 98.7 F 98.1 F Pulse Rate 138 H 117 H Respiratory 20 18 Rate Blood Pressure 160/101 155/93 O2 Sat by Pulse 100 98 Oximetry EKG Findings - EKG Results: EKG: interpreted by ERMD, sinus rhythm, normal axis, normal QRS, normal ST/T EKG shows: tachycardia (Rate approximately 111 bpm) Medical Decision Making - Lab Data Result diagrams: 07/24/18 21:35 07/24/18 21:35 Lab Results 07/24/18 07/24/18 07/24/18 Range/Units 21:35 21:35 21:35 WBC 5.4 (3.8-10.6) k/uL RBC 4.09 (3.80-5.40) m/uL Hgb 12.9 (11.4-16.0) gm/dL Hct 38.1 (34.0-46.0) % MCV 93.0 (80.0-100.0) fL MCH 31.6 (25.0-35.0) pg MCHC 33.9 (31.0-37.0) g/dL RDW 11.8 (11.5-15.5) % Plt Count 220 (150-450) k/uL Neutrophils % 62 % Lymphocytes % 29 % Monocytes % 6 % Eosinophils % 1 % Basophils % 0 % Neutrophils # 3.4 (1.3-7.7) k/uL Lymphocytes # 1.6 (1.0-4.8) k/uL Monocytes # 0.3 (0-1.0) k/uL Eosinophils # 0.1 (0-0.7) k/uL Basophils # 0.0 (0-0.2) k/uL PT 9.8 (9.0-12.0) sec INR 0.9 (<1.2) APTT 22.1 (22.0-30.0) sec Sodium 140 (137-145) mmol/L Potassium 3.8 (3.5-5.1) mmol/L Chloride 109 H (98-107) mmol/L Carbon Dioxide 21 L (22-30) mmol/L Anion Gap 10 mmol/L BUN 15 (7-17) mg/dL Creatinine 0.59 (0.52-1.04) mg/dL Est GFR (CKD-EPI)AfAm >90 (>60 ml/min/1.73 sqM) Est GFR (CKD-EPI)NonAf >90 (>60 ml/min/1.73 sqM) Glucose 149 H (74-99) mg/dL Calcium 9.8 (8.4-10.2) mg/dL Magnesium 1.9 (1.6-2.3) mg/dL Total Bilirubin 0.2 (0.2-1.3) mg/dL AST 19 (14-36) U/L ALT 14 (9-52) U/L Alkaline Phosphatase 74 (38-126) U/L Troponin I (0.000-0.034) ng/mL Total Protein 7.3 (6.3-8.2) g/dL Albumin 4.5 (3.5-5.0) g/dL TSH 0.018 L (0.465-4.680) mIU/L Urine Color Urine Appearance (Clear) Urine pH (5.0-8.0) Ur Specific [place] (1.001-1.035) Urine Protein (Negative) Urine Glucose (UA) (Negative) Urine Ketones (Negative) Urine Blood (Negative) Urine Nitrite (Negative) Urine Bilirubin (Negative) Urine Urobilinogen (<2.0) mg/dL Ur Leukocyte Esterase (Negative) Urine RBC (0-5) /hpf Urine WBC (0-5) /hpf Ur Squamous Epith Cells (0-4) /hpf Urine Mucus (None) /hpf 07/24/18 07/24/18 Range/Units 21:35 21:44 WBC (3.8-10.6) k/uL RBC (3.80-5.40) m/uL Hgb (11.4-16.0) gm/dL Hct (34.0-46.0) % MCV (80.0-100.0) fL MCH (25.0-35.0) pg MCHC (31.0-37.0) g/dL RDW (11.5-15.5) % Plt Count (150-450) k/uL Neutrophils % % Lymphocytes % % Monocytes % % Eosinophils % % Basophils % % Neutrophils # (1.3-7.7) k/uL Lymphocytes # (1.0-4.8) k/uL Monocytes # (0-1.0) k/uL Eosinophils # (0-0.7) k/uL Basophils # (0-0.2) k/uL PT (9.0-12.0) sec INR (<1.2) APTT (22.0-30.0) sec Sodium (137-145) mmol/L Potassium (3.5-5.1) mmol/L Chloride (98-107) mmol/L Carbon Dioxide (22-30) mmol/L Anion Gap mmol/L BUN (7-17) mg/dL Creatinine (0.52-1.04) mg/dL Est GFR (CKD-EPI)AfAm (>60 ml/min/1.73 sqM) Est GFR (CKD-EPI)NonAf (>60 ml/min/1.73 sqM) Glucose (74-99) mg/dL Calcium (8.4-10.2) mg/dL Magnesium (1.6-2.3) mg/dL Total Bilirubin (0.2-1.3) mg/dL AST (14-36) U/L ALT (9-52) U/L Alkaline Phosphatase (38-126) U/L Troponin I <0.012 (0.000-0.034) ng/mL Total Protein (6.3-8.2) g/dL Albumin (3.5-5.0) g/dL TSH (0.465-4.680) mIU/L Urine Color Light Yellow Urine Appearance Clear (Clear) Urine pH 6.0 (5.0-8.0) Ur Specific [place] 1.013 (1.001-1.035) Urine Protein Negative (Negative) Urine Glucose (UA) Negative (Negative) Urine Ketones Negative (Negative) Urine Blood Trace H (Negative) Urine Nitrite Negative (Negative) Urine Bilirubin Negative (Negative) Urine Urobilinogen <2.0 (<2.0) mg/dL Ur Leukocyte Esterase Negative (Negative) Urine RBC 4 (0-5) /hpf Urine WBC 1 (0-5) /hpf Ur Squamous Epith Cells 1 (0-4) /hpf Urine Mucus Rare H (None) /hpf Disposition Clinical Impression: Sinus tachycardia Disposition: HOME SELF-CARE Condition: Good Instructions (If sedation given, give patient instructions): Heart Palpitations (ED) Additional Instructions: Your blood sugar today was elevated, though it is not a fasting specimen, follow with your physician. In addition your TSH level was low follow up for this as well. Is patient prescribed a controlled substance at d/c from ED?: No Referrals: Rocky Caballero MD [Primary Care Provider] - 1-2 days
[2018-07-24] MEDS ORDERED: SODIUM CHLORIDE 0.9% 1,000 ML IV ONE (21:25)
[2018-07-24 21:46] LABS: Basophils % (A) 0 %; Eosinophils # (A) 0.1 k/uL (0-0.7); Eosinophils % (A) 1 %; HCT 38.1 % (34.0-46.0); HGB 12.9 gm/dL (11.4-16.0); Lymphocytes # (A) 1.6 k/uL (1.0-4.8); Lymphocytes % (A) 29 %; MCH 31.6 pg (25.0-35.0); MCHC 33.9 g/dL (31.0-37.0); Mean Platelet Volume 6.9; Monocytes # (A) 0.3 k/uL (0-1.0); Monocytes % (A) 6 %; Neutrophils # (A) 3.4 k/uL (1.3-7.7); Neutrophils % (A) 62 %; Platelet Count 220 k/uL (150-450); RBC 4.09 m/uL (3.80-5.40); RDW 11.8 % (11.5-15.5); WBC 5.4 k/uL (3.8-10.6)
[2018-07-24 21:54] LABS: INR 0.9 (<1.2); Partial Thromboplastin Time 22.1 sec (22.0-30.0); Prothrombin Time 9.8 sec (9.0-12.0)
[2018-07-24 21:58] LABS: ALT 14 U/L (9-52); AST 19 U/L (14-36); Albumin 4.5 g/dL (3.5-5.0); Alkaline Phosphatase 74 U/L (38-126); Anion Gap 10 mmol/L; Blood Urea Nitrogen 15 mg/dL (7-17); Calcium 9.8 mg/dL (8.4-10.2); Carbon Dioxide 21 mmol/L (22-30); Chloride 109 mmol/L (98-107); Glucose 149 mg/dL (74-99); Magnesium 1.9 mg/dL (1.6-2.3); Potassium 3.8 mmol/L (3.5-5.1); Sodium 140 mmol/L (137-145); Total Bilirubin 0.2 mg/dL (0.2-1.3); Total Protein 7.3 g/dL (6.3-8.2)
[2018-07-24 21:58] LABS: Appearance,Urine Clear (Clear); Bilirubin,Urine Negative (Negative); Blood,Urine Trace (Negative); Color,Urine Light Yellow; Glucose,Urine (UA) Negative (Negative); Ketones,Urine Negative (Negative); Leukocyte Esterase,Urine Negative (Negative); Mucus,Urine Rare /hpf; Nitrite,Urine Negative (Negative); Protein,Urine Negative (Negative); RBC,Urine 4 /hpf (0-5); Specific Gravity,Urine 1.013 (1.001-1.035); Squamous Epithelial Cell,Urine 1 /hpf (0-4); Urobilinogen,Urine <2.0 mg/dL (<2.0); WBC,Urine 1 /hpf (0-5)
--- NOTE | 2018-07-24 22:17 | XR ---
EXAMINATION: XR chest 1V portable DATE AND TIME: 07/24/2018 9:47 PM CLINICAL INDICATION: PHH; dysrhythmia TECHNIQUE: Departmental protocol COMPARISON: 03/21/2017 FINDINGS: The lungs are clear. The pleural spaces are negative. The cardiac silhouette is not enlarged. The remainder of the mediastinal silhouette is unremarkable. The skeletal structures and soft tissues are negative for acute findings. IMPRESSION: NO ACUTE PROCESS.
[2018-07-25 00:29] VITALS: BP 132/87; PULSE 93; RESP 18; TEMP 98
== END 2018-07-25 00:34 | disposition home or self-care (01) ==
LOC: EC 20:52
DX: R00.0 Tachycardia, unspecified (principal); E07.9 Disorder of thyroid, unspecified; Z87.891 Personal history of nicotine dependence; Z79.899 Other long term (current) drug therapy
CPT/HCPCS: 36415; 71045; 80053; 81001; 83735; 84443; 84484; 85025; 85610; 85730; 93005; 96360; 96361; 99285

== ENCOUNTER → 2019-05-01 | Outpatient (CLI) | payer OTHER ==
--- NOTE | 2019-05-01 14:36 | MM ---
Reason for exam: screening (asymptomatic). Last mammogram was performed 1 year ago. History: Patient is postmenopausal and history of other cancer. Benign core biopsy of the left breast, May 28, 1997. Benign stereotactic core biopsy of the left breast, May 28, 1997. Taking estrogen for 3 years 7 months beginning at age 49. Physical Findings: A clinical breast exam by your physician is recommended on an annual basis and results should be correlated with mammographic findings. MG 3D Screening Mammo W/Cad Bilateral CC and MLO view(s) were taken. Prior study comparison: April 24, 2018, bilateral MG 3d screening mammo w/cad. April 02, 2017, right breast MG 3d work up w/cad RT. The breast tissue is heterogeneously dense. This may lower the sensitivity of mammography. Benign appearing bilateral calcifications. No suspicious abnormality. Left sternalis muscle noted. No significant changes when compared with prior studies. ASSESSMENT: Benign, BI-RAD 2 RECOMMENDATION: Routine screening mammogram of both breasts in 1 year.
== END | disposition home or self-care (01) ==
LOC: RADMAMWWP 09:56
PROVIDERS: ATTEND Obstetrics & Gynecology
DX: Z12.31 Encounter for screening mammogram for malignant neoplasm of breast (principal)
CPT/HCPCS: 77063; 77067

== ENCOUNTER → 2020-05-06 | Outpatient (CLI) | payer OTHER ==
--- NOTE | 2020-05-09 11:59 | MM ---
Reason for exam: screening (asymptomatic). Last mammogram was performed 1 year ago. History: Patient is postmenopausal and history of other cancer. Benign core biopsy of the left breast, May 28, 1997. Benign stereotactic core biopsy of the left breast, May 28, 1997. Took hormonal contraceptives for 5 years beginning at age 19. Taking estrogen for 3 years 7 months beginning at age 49. Physical Findings: A clinical breast exam by your physician is recommended on an annual basis and results should be correlated with mammographic findings. MG 3D Screening Mammo W/Cad Bilateral CC and MLO view(s) were taken. Prior study comparison: May 01, 2019, bilateral MG 3d screening mammo w/cad. April 24, 2018, bilateral MG 3d screening mammo w/cad. The breast tissue is heterogeneously dense. This may lower the sensitivity of mammography. There are benign appearing round calcifications bilaterally. There is no discrete abnormality. ASSESSMENT: Benign, BI-RAD 2 RECOMMENDATION: Routine screening mammogram of both breasts in 1 year.
== END ==
LOC: RADMAMWWP 08:15
PROVIDERS: ATTEND Obstetrics & Gynecology
DX: Z12.31 Encounter for screening mammogram for malignant neoplasm of breast (principal); Z78.0 Asymptomatic menopausal state
CPT/HCPCS: 77063; 77067

== ENCOUNTER → 2021-07-05 | Outpatient (CLI) | payer OTHER ==
--- NOTE | 2021-07-07 11:44 | MM ---
Reason for exam: screening (asymptomatic). Last mammogram was performed 1 year and 2 months ago. History: Patient is postmenopausal and history of other cancer. Benign core biopsy of the left breast, May 28, 1997. Benign stereotactic core biopsy of the left breast, May 28, 1997. Took hormonal contraceptives for 5 years beginning at age 19. Taking estrogen for 3 years 7 months beginning at age 49. Taking progesterone beginning at age 49. Physical Findings: A clinical breast exam by your physician is recommended on an annual basis and results should be correlated with mammographic findings. MG 3D Screening Mammo W/Cad Bilateral CC and MLO view(s) were taken. Prior study comparison: May 06, 2020, bilateral MG 3d screening mammo w/cad. May 01, 2019, bilateral MG 3d screening mammo w/cad. There are scattered fibroglandular densities. There are benign appearing round calcifications bilaterally. There is no discrete abnormality. ASSESSMENT: Benign, BI-RAD 2 RECOMMENDATION: Routine screening mammogram of both breasts in 1 year.
== END | disposition home or self-care (01) ==
LOC: RADMAMWWP 16:30
PROVIDERS: ATTEND Obstetrics & Gynecology
DX: Z12.31 Encounter for screening mammogram for malignant neoplasm of breast (principal); Z78.0 Asymptomatic menopausal state
CPT/HCPCS: 77063; 77067

== ENCOUNTER 2022-01-24 16:09 | Emergency (ER) | payer BC ==
[2022-01-24 19:27] VITALS: RESP 16
[2022-01-24 19:57] LABS: Basophils % (A) 0 %; Eosinophils # (A) 0.1 k/uL (0-0.7); Eosinophils % (A) 1 %; HCT 40.8 % (34.0-46.0); HGB 14.3 gm/dL (11.4-16.0); Lymphocytes % (A) 9 %; MCH 32.9 pg (25.0-35.0); MCHC 35.1 g/dL (31.0-37.0); MCV 93.6 fL (80.0-100.0); Mean Platelet Volume 8.3; Monocytes # (A) 0.5 k/uL (0-1.0); Monocytes % (A) 5 %; Neutrophils # (A) 8.9 k/uL (1.3-7.7); Neutrophils % (A) 84 %; Platelet Count 262 k/uL (150-450); RBC 4.36 m/uL (3.80-5.40); RDW 11.6 % (11.5-15.5); WBC 10.6 k/uL (3.8-10.6)
[2022-01-24 20:17] LABS: ALT 14 U/L (4-34); AST 20 U/L (14-36); African American GFR (CKD) >90 (>60 ml/min/1.73 sqM); Albumin 4.4 g/dL (3.5-5.0); Alkaline Phosphatase 75 U/L (38-126); Anion Gap 7 mmol/L; Blood Urea Nitrogen 13 mg/dL (7-17); Calcium 8.8 mg/dL (8.4-10.2); Carbon Dioxide 27 mmol/L (22-30); Chloride 103 mmol/L (98-107); Glucose 101 mg/dL (74-99); Lipase 68 U/L (23-300); Non-African American GFR(CKD) >90 (>60 ml/min/1.73 sqM); Potassium 3.8 mmol/L (3.5-5.1); Sodium 137 mmol/L (137-145); Total Bilirubin 0.6 mg/dL (0.2-1.3); Total Protein 7.1 g/dL (6.3-8.2)
--- NOTE | 2022-01-24 20:17 | CT ---
EXAMINATION TYPE: CT abdomen pelvis w con DATE OF EXAM: 01/24/2022 COMPARISON: 05/09/2016 HISTORY: LLQ pain CT DLP: 619.9 mGycm Automated exposure control for dose reduction was used. CONTRAST: Performed with IV Contrast, patient injected with 100 mL of Isovue 300. Images obtained from the diaphragm to the floor the pelvis with the IV contrast. The lung bases are clear of consolidation. No pleural effusion. Heart size is normal. No pericardial effusion. There is mild subsegmental atelectasis at the lateral left lung base. There is a 3 cm cyst in the left lobe of the liver. Spleen is intact. Stomach is intact. No pancreati c mass. There are clips from cholecystectomy. The bile duct are not dilated. No evidence of solid rogerio er mass. There is no adrenal mass. Kidneys show satisfactory contrast opacification. No hydronephrosis. Ureter s are not dilated. No retroperitoneal adenopathy. Bladder distends smoothly. No inguinal hernia. No f ree fluid in the pelvis. There is hysterectomy. There are numerous sigmoid diverticula. There is some fat stranding and wall thickening around the mi d sigmoid colon. Appendix is medial and appears normal. There is no ascites or free air. No sign of a bowel obstructio n. There is moderate narrowing of L4-5 and L5-S1 disc spaces with spur formation. No lumbar compression fracture. The bony pelvis is intact. The hip joints are intact. IMPRESSION: Sigmoid diverticulosis without evidence of diverticulitis in the mid sigmoid colon. No drainable flui d collection. There is clearing of the left renal obstruction and left ureteral calculus compared to old exam.
[2022-01-24 20:23] LABS: Appearance,Urine Clear (Clear); Bilirubin,Urine Negative (Negative); Blood,Urine Negative (Negative); Color,Urine Yellow; Glucose,Urine (UA) Negative (Negative); Ketones,Urine 3+ (Negative); Leukocyte Esterase,Urine Negative (Negative); Nitrite,Urine Negative (Negative); Protein,Urine Negative (Negative); Specific Gravity,Urine 1.017 (1.001-1.035); Urobilinogen,Urine <2.0 mg/dL (<2.0)
[2022-01-24] MEDS ORDERED: AMOXIC-POT CLAV 875-125MG 1 EACH TAB PO STA (20:23)
--- NOTE | 2022-01-24 20:25 | ED ---
General Adult HPI - General Chief complaint: Abdominal Pain Stated complaint: Lower Left ABD Pain Time Seen by Provider: 01/24/22 17:31 Source: patient Mode of arrival: ambulatory - History of Present Illness Initial comments: This is a 66-year-old female with no past medical history presents emergency department for left lower quadrant abdominal pain has been present the last 11 days. The patient stated that she thought it would get better however the pain continued to be present intermittently in the left lower quadrant. The patient does have a history of diverticulitis and stated that she has been eating things that she is not supposed to including multiple meals of popcorn and seeds with this shell on them. The patient reached out to her primary care physician but was unable to see her and then went to urgent care today who stated that they could not do any evaluation for her. The patient then stated she came to the emergency department for evaluation. The patient stated that she did have some mild intermittent nausea without vomiting. The patient stated that she didn't have any episodes of diarrhea denied any fevers or chills. The patient was resting in bed comfortably. - Related Data Home Medications Medication Instructions Recorded Confirmed Thyroid,Pork [[employer] Thyroid 120] 90 mg PO QAM 05/24/16 07/24/18 Adk 1 tab PO DAILY 03/28/17 07/24/18 Dim Complex 1 tab PO DAILY 03/28/17 07/24/18 Iodine 1 tab PO DAILY 03/28/17 07/24/18 Montelukast [Singulair] 10 mg PO DAILY 07/24/18 07/24/18 Thyroid,Pork [Thyroid] 30 mg PO HS 07/24/18 07/24/18 Previous Rx's Medication Instructions Recorded Amoxic-Pot Clav 875-125Mg 1 tab PO BID 10 Days #20 tab 01/24/22 [Augmentin 875-125] Allergies Allergy/AdvReac Type Severity Reaction Status Date / Time No Known Allergies Allergy Verified 01/24/22 16:54 Review of Systems ROS Statement: Those systems with pertinent positive or pertinent negative responses have been documented in the HPI. ROS Other: All systems not noted in ROS Statement are negative. Past Medical History Past Medical History: GERD/Reflux, Thyroid Disorder Additional Past Medical History / Comment(s): migraines, kidney stone, varicose veins, small hiatal hernia, diverticulitis, high pressure in eyes- doctor watching History of Any Multi-Drug Resistant Organisms: None Reported Past Surgical History: Cholecystectomy, Hysterectomy, Orthopedic Surgery Additional Past Surgical History / Comment(s): rt ankle surgery, stent left kidney Past Anesthesia/Blood Transfusion Reactions: Motion Sickness, Postoperative Nausea & Vomiting (PONV) Past Psychological History: No Psychological Hx Reported Smoking Status: Former smoker Past Alcohol Use History: Occasional Past Drug Use History: Marijuana - Past Family History Mother Family Medical History: No Reported History General Exam Limitations: no limitations General appearance: alert, in no apparent distress Head exam: Present: atraumatic, normocephalic Eye exam: Present: normal appearance, PERRL Pupils: Present: normal accommodation ENT exam: Present: normal exam, normal oropharynx, mucous membranes moist Neck exam: Present: normal inspection, full ROM Respiratory exam: Present: normal lung sounds bilaterally Cardiovascular Exam: Present: regular rate, normal rhythm, normal heart sounds GI/Abdominal exam: Present: soft, tenderness (Mild tenderness to palpation to the left lower quadrant) Extremities exam: Present: normal inspection, full ROM Back exam: Present: normal inspection, full ROM Neurological exam: Present: alert, oriented X3, CN II-XII intact Psychiatric exam: Present: normal affect, normal mood Skin exam: Present: warm, dry Course Vital Signs 01/24/22 01/24/22 01/24/22 16:52 19:25 20:17 Temperature 98.0 F 98.2 F Pulse Rate 108 H 78 91 Respiratory 18 16 16 Rate Blood Pressure 152/91 140/90 157/93 O2 Sat by Pulse 99 98 99 Oximetry 01/24/22 20:37 Temperature 98.6 F Pulse Rate 90 Respiratory 16 Rate Blood Pressure 156/93 O2 Sat by Pulse 100 Oximetry Medical Decision Making - Medical Decision Making The patient was seen and evaluated in the emergency department. Physical exam, the patient was resting in bed without any acute distress. Vital signs admission were stable and within normal limits. Due to the nature the patient's complaints, laboratory workup and CT of the abdomen and pelvis was obtained. All laboratory workup was within normal limits. CT abdomen and pelvis did show multiple diverticula of the sigmoid colon concerning for signs of diverticulosis without any diverticulitis. I did evaluate and reviewed the computed tomography scan as well and it did show multiple diverticula. Due to the patient's continued and extended duration of abdominal pain, the patient will be treated as if she did have diverticulitis. The patient was given a prescription for Augmentin to be taken at home and told to take his medications as prescribed. The patient was also given a dose in the emergency department. The patient was advised that she should start to have improvement of her symptoms over the next 48-72 hours but to report back to the emergency department if she became acutely worse. The patient was also advised to follow-up with her primary care physician. The patient was agreeable to this and all of her questions were answered. The patient was discharged home in stable condition. - Lab Data Result diagrams: 01/24/22 19:01/24/22 19: Lab Results 01/24/22 01/24/22 01/24/22 Range/Units :: 19: WBC 10.6 (3.8-10.6) k/uL RBC 4.36 (3.80-5.40) m/uL Hgb 14.3 (11.4-16.0) gm/dL Hct 40.8 (34.0-46.0) % MCV 93.6 (80.0-100.0) fL MCH 32.9 (25.0-35.0) pg MCHC 35.1 (31.0-37.0) g/dL RDW 11.6 (11.5-15.5) % Plt Count 262 (150-450) k/uL MPV 8.3 Neutrophils % 84 % Lymphocytes % 9 % Monocytes % 5 % Eosinophils % 1 % Basophils % 0 % Neutrophils # 8.9 H (1.3-7.7) k/uL Lymphocytes # 1.0 (1.0-4.8) k/uL Monocytes # 0.5 (0-1.0) k/uL Eosinophils # 0.1 (0-0.7) k/uL Basophils # 0.0 (0-0.2) k/uL PT 10.0 (9.0-12.0) sec INR 0.9 (<1.2) APTT 22.8 (22.0-30.0) sec Sodium (137-145) mmol/L Potassium (3.5-5.1) mmol/L Chloride (98-107) mmol/L Carbon Dioxide (22-30) mmol/L Anion Gap mmol/L BUN (7-17) mg/dL Creatinine (0.52-1.04) mg/dL Est GFR (CKD-EPI)AfAm (>60 ml/min/1.73 sqM) Est GFR (CKD-EPI)NonAf (>60 ml/min/1.73 sqM) Glucose (74-99) mg/dL Calcium (8.4-10.2) mg/dL Total Bilirubin (0.2-1.3) mg/dL AST (14-36) U/L ALT (4-34) U/L Alkaline Phosphatase (38-126) U/L Total Protein (6.3-8.2) g/dL Albumin (3.5-5.0) g/dL Lipase (23-300) U/L Urine Color Yellow Urine Appearance Clear (Clear) Urine pH 7.0 (5.0-8.0) Ur Specific [place] 1.017 (1.001-1.035) Urine Protein Negative (Negative) Urine Glucose (UA) Negative (Negative) Urine Ketones 3+ H (Negative) Urine Blood Negative (Negative) Urine Nitrite Negative (Negative) Urine Bilirubin Negative (Negative) Urine Urobilinogen <2.0 (<2.0) mg/dL Ur Leukocyte Esterase Negative (Negative) 01/24/22 Range/Units 19:22 WBC (3.8-10.6) k/uL RBC (3.80-5.40) m/uL Hgb (11.4-16.0) gm/dL Hct (34.0-46.0) % MCV (80.0-100.0) fL MCH (25.0-35.0) pg MCHC (31.0-37.0) g/dL RDW (11.5-15.5) % Plt Count (150-450) k/uL MPV Neutrophils % % Lymphocytes % % Monocytes % % Eosinophils % % Basophils % % Neutrophils # (1.3-7.7) k/uL Lymphocytes # (1.0-4.8) k/uL Monocytes # (0-1.0) k/uL Eosinophils # (0-0.7) k/uL Basophils # (0-0.2) k/uL PT (9.0-12.0) sec INR (<1.2) APTT (22.0-30.0) sec Sodium 137 (137-145) mmol/L Potassium 3.8 (3.5-5.1) mmol/L Chloride 103 (98-107) mmol/L Carbon Dioxide 27 (22-30) mmol/L Anion Gap 7 mmol/L BUN 13 (7-17) mg/dL Creatinine 0.52 (0.52-1.04) mg/dL Est GFR (CKD-EPI)AfAm >90 (>60 ml/min/1.73 sqM) Est GFR (CKD-EPI)NonAf >90 (>60 ml/min/1.73 sqM) Glucose 101 H (74-99) mg/dL Calcium 8.8 (8.4-10.2) mg/dL Total Bilirubin 0.6 (0.2-1.3) mg/dL AST 20 (14-36) U/L ALT 14 (4-34) U/L Alkaline Phosphatase 75 (38-126) U/L Total Protein 7.1 (6.3-8.2) g/dL Albumin 4.4 (3.5-5.0) g/dL Lipase 68 (23-300) U/L Urine Color Urine Appearance (Clear) Urine pH (5.0-8.0) Ur Specific [place] (1.001-1.035) Urine Protein (Negative) Urine Glucose (UA) (Negative) Urine Ketones (Negative) Urine Blood (Negative) Urine Nitrite (Negative) Urine Bilirubin (Negative) Urine Urobilinogen (<2.0) mg/dL Ur Leukocyte Esterase (Negative) Disposition Clinical Impression: Diverticulitis Disposition: HOME SELF-CARE Condition: Stable Instructions (If sedation given, give patient instructions): Diverticulitis (DC) Prescriptions: Amoxic-Pot Clav 875-125Mg [Augmentin 875-125] 1 tab PO BID 10 Days #20 tab Is patient prescribed a controlled substance at d/c from ED?: No Referrals: Rocky Caballero MD [Primary Care Provider] - 1-2 days Time of Disposition: 20:25
[2022-01-24 20:27] LABS: INR 0.9 (<1.2); Partial Thromboplastin Time 22.8 sec (22.0-30.0)
[2022-01-24 20:37] VITALS: BP 156/93; PULSE 90; TEMP 98.6
== END 2022-01-24 20:41 | disposition home or self-care (01) ==
LOC: EC 16:09
DX: K57.32 Diverticulitis of large intestine without perforation or abscess without bleeding (principal); F12.90 Cannabis use, unspecified, uncomplicated; Z87.891 Personal history of nicotine dependence
CPT/HCPCS: 36415; 80053; 83690; 85025; 85610; 85730; 81003; 74177; 99284; Q9967

== ENCOUNTER → 2022-07-17 | Outpatient (CLI) | payer MEDICARE ==
[2022-07-17 15:18] LABS: African American GFR (CKD) >90 (>60 ml/min/1.73 sqM); Blood Urea Nitrogen 13 mg/dL (7-17); Non-African American GFR(CKD) >90 (>60 ml/min/1.73 sqM)
--- NOTE | 2022-07-19 07:43 | CT ---
EXAMINATION TYPE: CT abdomen pelvis w con DATE OF EXAM: 07/17/2022 COMPARISON: 01/24/2022 HISTORY: 67-year-old female K57.32, Diverticulitis. TECHNIQUE: Contiguous axial scanning of the abdomen and pelvis following administration of 100 ml Iso sven 300 IV contrast. Delayed images through the kidneys and coronal/sagittal reconstructions perform ed. CT DLP: 731 mGycm Automated exposure control for dose reduction was used. FINDINGS: Heart normal size without pericardial effusion. Lung bases clear without pleural effusion. Benign 2.7 cm left hepatic lobe cyst redemonstrated. Portal venous system is patent. There is a 2.1 c m diverticulum of the second portion of the duodenum projecting into the pancreatic head region. No b iliary ductal dilatation. Cholecystectomy clips. Adrenal glands, kidneys, spleen, and pancreas within normal limits. No dilated small bowel, free fluid, or free air. No mesenteric or retroperitoneal lymphadenopathy. Normal appendix. Oral contrast faintly progressed to the rectum. There is left-sided clonic diverticulosis, extensive along the sigmoid colon. No surrounding inflamma tory change. Bladder partially distended. Uterus surgically absent. Small bilateral ovaries. No abnormal fluid col lection the pelvis or pelvic adenopathy. Bones: Moderate degenerative disc disease lower lumbar spine with facet arthropathy. IMPRESSION: LEFT-SIDED COLONIC DIVERTICULOSIS, EXTENSIVE IN THE SIGMOID COLON. No convincing findings of acute di verticulitis at this time.
== END | disposition home or self-care (01) ==
LOC: RADCTMAIN 13:58
PROVIDERS: ATTEND Surgery
DX: K57.32 Diverticulitis of large intestine without perforation or abscess without bleeding (principal); K57.30 Diverticulosis of large intestine without perforation or abscess without bleeding
CPT/HCPCS: 82565; 84520; 74177; 36415; Q9967

== ENCOUNTER → 2022-07-17 | Outpatient (CLI) | payer MEDICARE ==
--- NOTE | 2022-07-17 19:09 | BD ---
EXAMINATION TYPE: Axial Bone Density DATE OF EXAM: 07/17/2022 CLINICAL HISTORY: 67 years old Female. ICD-10 CODE: M81.0 AGE RELATED OSTEO Height: Weight: FRAX RISK QUESTIONS: Family History (Parent hip fracture): no History of Fracture in Adulthood: no Secondary Osteoporosis: no Rheumatoid Arthritis: no RISK FACTORS HISTORY OF: Family History of Osteoporosis: no Active: yes Diet low in dairy products/other sources of calcium: no Postmenopausal woman: yes If Premenopausal, do you have irregular periods: Take estrogen and/or progesterone medications: yes How lon+ years Lost more than 2 inches in height since high school: no Frequent falls: no Poor Health: no MEDICATIONS: Thyroid Medications: yes Which medication: Levothyroxine How Lon+ years Additional Medications: no EXAM MEASUREMENTS: Bone mineral densitometry was performed using the [employer]. Bone mineral density as measured about the Lumbar spine is: ----- L1-L4(G/cm2): 1.178 T Score Values are as follows: ----- L1: -0.2 ----- L2: -0.2 ----- L3: -0.6 ----- L4: 0.6 ----- L1-L4: 0.0 Z Score Values are as follows: ----- L1: 1.8 ----- L2: 1.8 ----- L3: 1.3 ----- L4: 2.6 ----- L1-L4: 1.9 Bone mineral density baseline Bone mineral density about the R hip (g/cm2): 0.870 Bone mineral density about the L hip (g/cm2): 0.850 T Score values are as follows: -----R Neck: -1.5 -----L Neck: -1.4 -----R Total: -1.1 -----L Total: -1.3 Z Score values are as follows: -----R Neck: 0.2 -----L Neck: 0.3 -----R Total: 0.4 -----L Total: 0.2 Bone mineral density baseline FRAX%s: The graph provided illustrates a 7.7% chance for a major osteoporotic fx and a 0.9% chance fo r the hips probability for fx in 10 years time. IMPRESSION: Osteopenia (T Score between -2.5 and -1). There is slightly increased risk of fracture and the patient may be considered for treatment. Re-Screen 2-5 years. NOTE: T-SCORE=SD OF THE YOUNG ADULT MEAN.
== END | disposition home or self-care (01) ==
LOC: RADBDWWP 12:56
PROVIDERS: ATTEND Internal Medicine Geriatric Medicine
DX: M81.0 Age-related osteoporosis without current pathological fracture (principal); M85.89 Other specified disorders of bone density and structure, multiple sites
CPT/HCPCS: 77080

== ENCOUNTER → 2022-07-17 | Outpatient (CLI) | payer MEDICARE ==
--- NOTE | 2022-07-18 08:17 | MM ---
Reason for Exam: Screening (asymptomatic). Last screening mammogram was performed 12 month(s) ago. Patient History: Menarche at age 15. First Full-Term at age 30. Hysterectomy at age 47. Postmenopausal. Other cancer. Currently using Estrogen, beginning at age 49 for 3 years, 7 months. Currently using Progesterone, starting at age 49. Hormonal Contraceptives for 5 years from age 19 until age 24. 05/28/1997, Benign Core Biopsy on the left side. 05/28/1997, Benign Stereotactic Core Biopsy on the left side. Risk Values: Elza 5 year model risk: 2.8%. NCI Lifetime model risk: 10.3%. Prior Study Comparison: 05/01/2019 Bilateral Screening Mammogram, [facility]. 05/06/2020 Bilateral Screening Mammogram, [facility]. 07/05/2021 Bilateral Screening Mammogram, [facility]. Tissue Density: The breast tissue is heterogeneously dense. This may lower the sensitivity of mammography. Findings: Analyzed By CAD. There is no suspicious group of microcalcifications or new suspicious mass in either breast. Benign-appearing calcifications within both breasts. No significant change from prior exams. Overall Assessment: Benign, BI-RAD 2 Management: Screening Mammogram of both breasts in 1 year. A clinical breast exam by your physician is recommended on an annual basis and results should be correlated with mammographic findings. Electronically signed and approved by: Khalif Kerns D.O.
== END | disposition home or self-care (01) ==
LOC: RADMAMWWP 12:55
PROVIDERS: ATTEND Obstetrics & Gynecology
DX: Z12.31 Encounter for screening mammogram for malignant neoplasm of breast (principal); Z78.0 Asymptomatic menopausal state
CPT/HCPCS: 77063; 77067

== ENCOUNTER → 2023-07-19 | Outpatient (CLI) | payer MEDICARE ==
--- NOTE | 2023-07-21 20:46 | MM ---
Reason for Exam: Screening (asymptomatic). Last screening mammogram was performed 12 month(s) ago. Patient History: Menarche at age 15. First Full-Term at age 30. Hysterectomy at age 47. Postmenopausal. Other cancer. Currently using Estrogen, beginning at age 49 for 3 years, 7 months. Currently using Progesterone, starting at age 49. Hormonal Contraceptives for 5 years from age 19 until age 24. 05/28/1997, Benign Core Biopsy on the left side. 05/28/1997, Benign Stereotactic Core Biopsy on the left side. Risk Values: Elza 5 year model risk: 2.8%. NCI Lifetime model risk: 9.9%. Prior Study Comparison: 05/06/2020 Bilateral Screening Mammogram, [facility]. 07/05/2021 Bilateral Screening Mammogram, [facility]. 07/17/2022 Bilateral MG 3D screening mammo w/cad, [facility]. Tissue Density: There are scattered areas of fibroglandular density. Findings: Analyzed By CAD. Unchanged areas of asymmetric density. There is no suspicious group of microcalcifications or new suspicious mass in either breast. Overall Assessment: Negative, BI-RAD 1 Management: Screening Mammogram of both breasts in 1 year. . Patient should continue monthly self-breast exams. A clinical breast exam by your physician is recommended on an annual basis. This exam should not preclude additional follow-up of suspicious palpable abnormalities. Note on Elza scores and lifetime risk: 1. A Elza score greater than 3% is considered moderate risk. If this is the case, consider specialist referral to assess eligibility for a risk reducing agent. 2. If overall lifetime risk for the development of breast cancer is 20% or higher, the patient may qualify for future screening with alternating mammogram and breast MRI. Electronically signed and approved by: Betsy Alonzo M.D. Radiologist
== END | disposition home or self-care (01) ==
LOC: RADMAMWWP 07:28
PROVIDERS: ATTEND Obstetrics & Gynecology
DX: Z12.31 Encounter for screening mammogram for malignant neoplasm of breast (principal); Z78.0 Asymptomatic menopausal state
CPT/HCPCS: 77063; 77067

== ENCOUNTER → 2024-07-22 | Outpatient (CLI) | payer MEDICARE ==
--- NOTE | 2024-07-22 12:34 | MM ---
Reason for Exam: Screening (asymptomatic). Last screening mammogram was performed 12 month(s) ago. Patient History: Menarche at age 15. First Full-Term at age 30. Hysterectomy at age 47. Postmenopausal. Other cancer. Currently using Estrogen, beginning at age 49 for 3 years, 7 months. Currently using Progesterone, starting at age 49. Hormonal Contraceptives for 5 years from age 19 until age 24. 05/28/1997, Benign Core Biopsy on the left side. 05/28/1997, Benign Stereotactic Core Biopsy on the left side. Risk Values: Elza 5 year model risk: 2.8%. NCI Lifetime model risk: 9.5%. Prior Study Comparison: 07/05/2021 Bilateral Screening Mammogram, [facility]. 07/17/2022 Bilateral MG 3D screening mammo w/cad, [facility]. 07/19/2023 Bilateral MG 3D screening mammo w/cad, [facility]. Tissue Density: There are scattered areas of fibroglandular density. Findings: Analyzed By CAD. Right breast: There is no suspicious group of microcalcifications or new suspicious mass. Left breast: There is no suspicious group of microcalcifications or new suspicious mass. Overall Assessment: Negative, BI-RAD 1 Management: Screening Mammogram of both breasts in [address] [facility] will attempt to contact patient to return for supplemental views and ultrasound if indicated. Patient should continue monthly self-breast exams. A clinical breast exam by your physician is recommended on an annual basis. This exam should not preclude additional follow-up of suspicious palpable abnormalities. Note on Elza scores and lifetime risk: 1. A Elza score greater than 3% is considered moderate risk. If this is the case, consider specialist referral to assess eligibility for a risk reducing agent. 2. If overall lifetime risk for the development of breast cancer is 20% or higher, the patient may qualify for future screening with alternating mammogram and breast MRI. [facility], , 07/22/2024 12:31 PM. Electronically signed and approved by: Keith Herr DO
== END | disposition home or self-care (01) ==
LOC: RADMAMWWP 11:56
PROVIDERS: ATTEND Internal Medicine Geriatric Medicine
DX: Z12.31 Encounter for screening mammogram for malignant neoplasm of breast (principal); R92.323 Mammographic fibroglandular density, bilateral breasts; Z78.0 Asymptomatic menopausal state; Z92.0 Personal history of contraception
CPT/HCPCS: 77063; 77067